=== PATIENT | female | born 1940 | race Caucasian/White ===

== ENCOUNTER 2018-11-05 14:07 | Inpatient (IN) ==
[2018-11-05 15:29] LABS: Hematocrit (blood only) 40.8 % (37-47); Hemoglobin 14.2 g/dL (12.0-16.0); Immature Granulocytes # (auto) 0.02 K/uL (0.00-0.02); Immature Granulocytes % (auto) 0.3 %; Lymphocytes # (auto) 0.71 K/uL (1.2-3.4); Lymphocytes % (auto) 11.5 %; Mean Corpuscular Hgb Conc 34.8 g/dL (32-36); Mean Corpuscular Volume 89.3 fL (80-100); Mean Platelet Volume 9.2 fL (7.4-10.4); Monocytes # (auto) 0.59 K/uL (0.11-0.59); Monocytes % (auto) 9.6 %; Neutrophils # (auto) 4.84 K/uL (1.4-6.5); Neutrophils % (auto) 78.6 %; Platelet Count 190 K/uL (130-400); RDW Coefficient of Variation 12.5 % (11.5-14.5); RDW Standard Deviation 40.6 fL (36.4-46.3); Red Blood Count 4.57 M/uL (4.2-5.4); White Blood Count 6.16 K/uL (4.8-10.8)
[2018-11-05 15:43] LABS: INR 1.1 (0.9-1.1); Prothrombin Time 11.4 Seconds (9.0-12.0)
[2018-11-05 15:49] LABS: Calcium 8.6 mg/dl (8.5-10.1); Creatinine Clr Calc Pharmacy 64.5 ml/min; Est GFR (African American) 80.6; Est GFR (Non-African American) 69.5; Magnesium 1.4 mg/dl (1.8-2.4); Potassium 2.6 mmol/L (3.5-5.1)
--- NOTE | 2018-11-05 15:49 | CT Scan Report ---
CT head/brain wo con CLINICAL HISTORY: 78 years-old Female with diplopia/frontal CAMACHO eval for cva/mass. Acute headache TECHNIQUE: Multiple axial CT images of the head were obtained without contrast. A dose lowering tech nique was utilized adhering to the principles of ALARA. CT DOSE: 614.27 mGy.cm COMPARISON: None. FINDINGS: No acute intracranial hemorrhage, midline shift, intracranial mass, hydrocephalus, territorial ischem ia or abnormal extra-axial collection. Mild age-related involutional changes. Minimal low-attenuation about the periventricular white matter suggestive of chronic microvascular ischemic changes. The calvarium is intact. The paranasal sinuses, mastoid air cells, and middle ear cavities are clear . IMPRESSION: No acute intracranial abnormality. The above report was generated using voice recognition software. It may contain grammatical, syntax o r spelling errors. Electronically signed by: Ck Kirkpatrick M.D. 11/05/2018 3:48 PM
[2018-11-05] MEDS ORDERED: POTASSIUM CHLORIDE 10 MEQ TABCR PO STA (15:55)
[2018-11-05] MEDS ORDERED: POTASSIUM CHLORIDE / WTR 10 MEQ/100 ML PLCT IV ONE ×2 (15:55→20:00)
[2018-11-05] MEDS ORDERED: MAGNESIUM SULFATE / D5W 1 GM/100 ML BAG IV STA (15:55)
[2018-11-05 16:03] LABS: Albumin Globulin Ratio 0.8 (0.9-2); Bilirubin,Total 0.5 mg/dl (0.2-1); Globulin 3.9 gm/dl (2.5-4.0); Total Protein 6.9 gm/dl (6.4-8.2); Troponin I 0.158 ng/ml (0-0.045)
[2018-11-05] MEDS ORDERED: ASPIRIN 81 MG CHEW PO STA (16:52)
[2018-11-05] MEDS ORDERED: ASPIRIN 81 MG CHEW ONE (17:02)
--- NOTE | 2018-11-05 17:29 | History & Physical Report ---
Date of Service November 05, 2018 Assessment & Plan (1) Monocular diplopia, left eye: Patient presented with left eye diplopia and intermittent frontal headache x 4 days. In ER afebrile, P: 101 to 90's, R: 18, BP: 159/79, 95% on RA. No leukocytosis. CT head: no acute findings DDX: stroke, giant cell arteritis -Tele to monitor for arrhythmias -EKG in am -lipids and A1C in am -TSH pending -ESR pending -MRI without contrast -U/S carotids -echo -aspiration precautions -PT/OT consult -Aspirin -neurology consult - educational resource coordinator aware and recommends MRI brain with and without contrast and MRA brain (2) Elevated troponin: Troponin: 0.15. EKG with diffuse ST depression Pt without CP or SOB R/O ACS. Risk factors: HTN, obesity -trend troponin -CPK pending -echo -lipid panel in am -EKG in am -nitro prn CP and repeat EKG -cardiology consult - educational resource coordinator aware, recommends monitoring troponin for now as pt asymptomatic (3) Hypokalemia: K: 2.6 Pt reports decreased oral intake over past several weeks - was on adipex for one month which was discontinued last week In ER given 10meq K IV, 20meq K po -replace and monitor -repeat bmp this evening (4) Hypomagnesemia: magnesium: 1.4 In ER given 1gm magnesium IV -replace and monitor (5) HTN (hypertension): Patient was recently started on Adipex 09/2018 and was discontinued sec ondary to elevated BP. In ER BP 159/79 -Monitor BP, may need to add BP agents (6) Alcohol use: 3 drinks per day. Last drink last night. Denies hx alcohol withdrawal -ativan prn -monitor for alcohol withdrawal DVT Prophylaxis -Heparin SQ DNR/DNI as per discussion with pt Follows with Dr Lau for routine care Pt was seen with Dr Ramos. See addendum History of Present Illness Chief Complaint: Diplopia Primary Care Provider: Ming Lau Pt is 78 y/o F without significant known PMH presented to ER with c/o diplopia x 4 days. Patient states onset of frontal headache 4 days ago. Headache is intermittent and lasts approximately 15-30 minutes, relieved by taking 325 mg aspirin. Patient also reports constant left eye diplopia for the past 4 days. Past 2 days with right neck aching with range of motion and stiffness. Tried massager and muscle rub cream on area with some relief. Patient states thinks right neck stiffness secondary to car ride back from [place]. Denies any head injury or any other recent injuries or falls. Denies vision loss, eye pain. Reports that he has noticed that she has had some hesitation before speaking and sometimes stops mid sentence before finishing a sentence for several weeks. Denies any noted facial drooping. Patient denies any chest pain or shortness of breath. States is able to clean the house without any exertional shortness of breath or chest pain, reports just works at her own pace. Patient was started on Adipex 10/04/18 at PCPs office. At that visit BP was noted to be 142/70. Repeat BP at PCP last week was 162/90 and she was taken off Adipex. Patient states did lose a couple pounds. She complains of dry mouth, loss of appetite, food not tasting well for the last several weeks. Patient states past several weeks has been feeling hot and then cold, did not take her temperature. Thinks has been feeling hot and cold while she was taking Adipex. Patient denies any other medications. Reports drinks 3 mixed drinks a night and last drink was last evening. Denies hx alcohol withdrawal. Denies N/V/D/C, CAMACHO, dizziness, syncope, CP, SOB, orthopnea, palpitations, cough, sore throat, choking, otalgia, rhinorrhea, abdominal pain, paresthesias, weakness, extremity weakness, extremity edema, rashes, urinary symptoms. Patient denies any history of known CAD, TIA or stroke. Allergies Allergy/AdvReac Type Severity Reaction Status Date / Time No Known Allergies Allergy Unverified 11/05/18 15:34 Past Med/Surg History Medical History Alcohol use (Chronic) History of hysterectomy (Chronic) No chronic problems Surgical History History of appendectomy (Chronic) History of cholecystectomy (Chronic) Social History Preferred Language: Arabic Feels Safe at Home: Yes Smoking Status: Former smoker Hx Alcohol Use: Yes Hx Substance Use: No Review of Systems All systems reviewed & are unremarkable except as noted in HPI & below Physical Exam Vital Signs (Past 24 Hours): Last Vital Signs Temp 37.0 C 11/05/18 14:17 Pulse 95 H 11/05/18 17:00 Resp 27 H 11/05/18 17:00 BP 159/79 H 11/05/18 14:17 Pulse Ox 95 11/05/18 17:00 Physical Exam: General: no distress, overweight Head: normocephalic, atraumatic Eyes: PERRL, EOM's intact, conjunctiva non-injected, anicteric ENT: normal inspection external ears, nose, mucous membranes moist Neck: supple, trachea midline, mild tenderness to palpation right lateral paraspinous muscles, left and right rotation with tenderness produced to right lateral/posterior neck, otherwise neck non-tender Lungs: clear, no respiratory distress, no wheezing/rhonchi/rales CV: RRR, no murmur, no JVD, 1+ pretibial edema Abd: normal BS, soft, non-tender Ext: no cyanosis, no calf tenderness Neuro: A&O x 3, +left lateral eye diplopia with both eyes open, symmetric eyebrow raise, tongue midline, no facial drooping, strength equal bilateral upper and lower extremities, no pronator drift, speech clear, thought process clear at this time, normal affect Skin: warm, dry Results & Data Laboratory Results Short CBC 11/05/18 Range/Units 15:20 WBC 6.16 (4.8-10.8) K/uL Hgb 14.2 (12.0-16.0) g/dL Hct 40.8 (37-47) % Plt Count 190 (130-400) K/uL BMP 11/05/18 15:20 Sodium 139 Potassium 2.6 L Chloride 97 L Carbon Dioxide 34 H BUN 10 Creatinine 0.82 Glucose 116 H Calcium 8.6 Cardiac Enzymes 11/05/18 Range/Units 15:20 Troponin I 0.158 H* (0-0.045) ng/ml Liver Function 11/05/18 Range/Units 15:20 Total Bilirubin 0.5 (0.2-1) mg/dl AST 15 (15-37) U/L ALT 18 (12-78) U/L Alkaline Phosphatase 151 H (45-117) U/L Albumin 3.0 L (3.4-5.0) gm/dl Diagnostic Findings CT HEAD: IMPRESSION: No acute intracranial abnormality. ECG Rate (beats per minute): 95 Rhythm: sinus rhythm Findings: + ST depression Comparison ECG Date: no prior available Supervising Physician Co-Signing Physician Notes Attending addendum The patient was seen in the ER in presence of the She is a 78 y/o F without significant known PMH presented to ER with c/o diplopia x 4 days. Patient states onset of frontal headache 4 days ago. Headache is intermittent and lasts approximately 15-30 minutes The headache did not happened to be very severe or explosive and the diplopia is mostly on looking towards the left side. She denies any other associated neurological symptoms. Except diplopia did not have any other complaints due to examination On examination No apparent distress at rest Hemodynamically stable with blood pressure 1% Chest-clear to auscultate bilaterally Heart-S1-S2 regular Abdomen benign nontender-, CATTLE TRADER-alert awake and oriented x3,. No deviation of the eyeballs. Diplopia noted on left lateral gaze only. No obvious extraocular muscle palsy noted. No focal sensory and motor deficit appreciated Admission labs, EKG and imaging studies noted though MRI of the head has been pending Has diplopia in left lateral gauge with headache Mildly elevated troponin without any significant EKG changes Neurology and cardiology consulted MRI of the head will be done Agree with assessment and plan as outlined above by Irene Ramos
[2018-11-05] MEDS ORDERED: ACETAMINOPHEN 325 MG TAB PO PRN (19:30)
[2018-11-05] MEDS ORDERED: PHARMACIST DISCHARGE MED REC CONSULT PRN (19:30)
[2018-11-05] MEDS ORDERED: LORazepam 1 MG/2 ML VIAL IV PRN (19:30)
[2018-11-05] MEDS ORDERED: NITROGLYCERIN SL 0.4 MG/TAB TAB SL PRN (19:30)
[2018-11-05] MEDS ORDERED: MAGNESIUM SULFATE / D5W 1 GM/100 ML BAG IV ONE (20:00)
--- NOTE | 2018-11-05 20:01 | Emergency Department Note ---
Entered by Dank Priest acting as a scribe for History of Present Illness General Chief complaint: Neuro Symptoms/Deficit Stated complaint: DOUBLE VISION(L)HEADACHES,DIZZY,PAIN IN NECK Source: patient Limitations: no limitations History of Present Illness Provider complaint: Double Vision Onset (ago): day(s) (4) Location: eyes and left Pain Consistency: + intermittent Maximum Pain Intensity: 4 Quality: + other (Double vision) Associated symptoms: + headaches; no chest pain and no shortness of breath The patient is a 78 year old female who presents to the Emergency Room with complaints of intermittent double vision that began on , 4 days ago. The patient states that she started noticing visual irregularities about 4 days ago. She states that she sees double when both of her eyes are open, but then has "blurry vision" when the right eye is closed, and sees normally when the left eye is closed. She originally stated that the diplopia was constant, but then states that the double vision comes and goes. The severity of the double vision is worsened with looking down. The patient also complains of an intermittent headache since that is localized to her forehead. She notes that she takes 2 Aspirin when she feels the headache coming on, which improves the pain. When the headache dissipates she notes that she is "confused" for a few seconds. The at bedside adds that the patient's speech sounds "mumbled" at times, but she has not had any difficulty finding words at any time. She denies any further chest pain, shortness of breath, abdominal pain, numbness or weakness to one side of her body. She does complain of intermittent chills for the past couple days. Allergies Allergy/AdvReac Type Severity Reaction Status Date / Time No Known Allergies Allergy Unverified 11/05/18 15:34 Past Med/Surg History Medical History Alcohol use (Chronic) History of hysterectomy (Chronic) No chronic problems Surgical History History of appendectomy (Chronic) History of cholecystectomy (Chronic) Family History Other Coronary heart disease Diabetes Hypertension Social History Preferred Language: Trinidadian Communication Ability: Effective Tool And Die Technician Required: No Beliefs That Will Affect Care: None Current Living Situation: Other Other Information That Helps Us Care for You: No Feels Safe at Home: Yes Safety Concerns: Feels Safe At This Time Smoking Status: Unknown if ever smoked Hx Alcohol Use: Yes Hx Substance Use: No Review of Systems See HPI for pertinent positives & negatives. and A total of 10 systems reviewed and were otherwise negative Physical Exam Vital Signs Vital Signs - 24 hr 11/05/18 14:17 11/05/18 14:41 11/05/18 16:00 Temperature 37.0 C Temperature Source Oral Sepsis Recent Fever Within 48 Hours No Sepsis New/Unexplained Change in Mental Status No Sepsis Action Taken by Nursing No Action Required Pulse Rate 101 H 95 H Pulse Rate from SpO2 Sensor 95 H Respiratory Rate 18 26 H Respiratory Effort / Characteristics Non-Labored Respiratory Depth Normal Blood Pressure 159/79 H Blood Pressure Mean 105 Blood Pressure Position Sitting Pulse Oximetry 95 93 Oxygen Delivery Method Room Air Room Air 11/05/18 16:30 11/05/18 17:00 11/05/18 17:14 Temperature Temperature Source Sepsis Recent Fever Within 48 Hours Sepsis New/Unexplained Change in Mental Status Sepsis Action Taken by Nursing Pulse Rate 96 H 95 H 98 H Pulse Rate from SpO2 Sensor 96 H 97 H 99 H Respiratory Rate 23 27 H 16 Respiratory Effort / Characteristics Respiratory Depth Blood Pressure 173/80 H Blood Pressure Mean 111 Blood Pressure Position Pulse Oximetry 94 95 100 Oxygen Delivery Method Room Air Constitutional: Vital signs reviewed. Eyes: Pupils are equal round reactive to light. Conjunctiva are noninjected. ENT: Pharynx is clear without erythema or exudate. Mucous membranes are moist. Neck supple without meningeal signs. Respiratory: Clear to auscultation bilaterally. Breath sounds are equal bilaterally. Cardiovascular: Regular rate and rhythm. No rubs or gallops. GI: Soft, nondistended and nontender. Bowel sounds are present. Musculoskeletal: No peripheral edema. No lower extremity tenderness. Integumentary: No cyanosis. Neurological: The patient is awake and alert. Cranial nerves II-XII are intact. Motor is 5 out of 5 all extremities. Sensation is intact to light touch all extremities. Normal speech. No pronator drift. No limb ataxia. Binocular diplopia present with downward gaze, no obvious palsy noted. Psychiatric: Normal affect. Course 1435: Past medical records reviewed. The patient was evaluated in room A12B, and a complete history and physical examination were performed. 1601: I checked on the patient. There is no change in her status. I discussed test results. She is agreeable to hospital admission. 1604: I reviewed the patient's case with Anusha Mccarthy [facility] Hospitalist . She will evaluate the patient for further management. 1607: I updated Anusha on the patient's bumped troponin. Administered Medications Discontinued Medications Aspirin (Aspirin Chew) 324 mg PO NOW STA Stop: 11/05/18 16:53 Last Admin: 11/05/18 17:10 Dose: 324 mg Documented by: [id number] Aspirin (Aspirin Chew) Confirm Administered Dose 324 mg .ROUTE .STK-MED ONE Stop: 11/05/18 17:03 Last Admin: 11/05/18 17:11 Dose: Not Given Documented by: [id number] Magnesium Sulfate/Dextrose (Magnesium Sulfate / D5w) 1 gm in 100 mls @ 100 mls/hr IV Q1H STA Stop: 11/05/18 16:54 Last Infusion: 11/05/18 19:14 Dose: 0 mls/hr Documented by: [id number] Admin: 11/05/18 17:29 Dose: 100 mls/hr Documented by: [id number] Potassium Chloride (K Zeb / Wtr) 10 meq in 100 mls @ 100 mls/hr IV ONE ONE Stop: 11/05/18 16:54 Last Infusion: 11/05/18 17:15 Dose: 0 mls/hr Documented by: [id number] Admin: 11/05/18 16:15 Dose: 100 mls/hr Documented by: [id number] Potassium Chloride (Klor-Con M10) 20 meq PO NOW STA Stop: 11/05/18 15:56 Last Admin: 11/05/18 16:20 Dose: 20 meq Documented by: [id number] Medical Decision Making Differential Diagnosis Differential Diagnosis includes: EOM Palsy, intracranial mass, intracranial hemorrhage, CVA, TIA. Medical Records Attestation: I reviewed the patient's medical records. Home Medications Current Medication List: was personally reviewed by mo Laboratory Data Attestation: I reviewed the patient's lab results. Result diagrams: 11/05/18 15:20 11/05/18 15:20 Lab Results 11/05/18 11/05/18 11/05/18 Range/Units 15:20 15:20 15:20 WBC 6.16 (4.8-10.8) K/uL RBC 4.57 (4.2-5.4) M/uL Hgb 14.2 (12.0-16.0) g/dL Hct 40.8 (37-47) % MCV 89.3 (80-100) fL MCH 31.1 (25-34) pg MCHC 34.8 (32-36) g/dL RDW Std Deviation 40.6 (36.4-46.3) fL RDW Coeff of Meche 12.5 (11.5-14.5) % Plt Count 190 (130-400) K/uL MPV 9.2 (7.4-10.4) fL Immature Gran % (Auto) 0.3 % Neut % (Auto) 78.6 % Lymph % (Auto) 11.5 % Rock % (Auto) 9.6 % Eos % (Auto) 0.0 % Baso % (Auto) 0.0 % Immature Gran # (Auto) 0.02 (0.00-0.02) K/uL Neut # (Auto) 4.84 (1.4-6.5) K/uL Lymph # (Auto) 0.71 L (1.2-3.4) K/uL Rock # (Auto) 0.59 (0.11-0.59) K/uL Eos # (Auto) 0.00 (0-0.5) K/uL Baso # (Auto) 0.00 (0-0.2) K/uL PT 11.4 (9.0-12.0) Seconds INR 1.1 (0.9-1.1) APTT 27.0 (21.0-31.0) Seconds PTT Ratio 1.0 Sodium 139 (136-145) mmol/L Potassium 2.6 L (3.5-5.1) mmol/L Chloride 97 L (98-107) mmol/L Carbon Dioxide 34 H (21-32) mmol/L Anion Gap 8.0 (3-11) BUN 10 (7-18) mg/dl Creatinine 0.82 (0.6-1.2) mg/dl Est Cr Clr Drug Dosing 64.5 ml/min Est GFR ( Amer) 80.6 Est GFR (Non-Af Amer) 69.5 BUN/Creatinine Ratio 12.0 (10-20) Glucose 116 H (70-99) mg/dl POC Glucose (70-99) Calcium 8.6 (8.5-10.1) mg/dl Magnesium 1.4 L (1.8-2.4) mg/dl Total Bilirubin 0.5 (0.2-1) mg/dl AST 15 (15-37) U/L ALT 18 (12-78) U/L Alkaline Phosphatase 151 H (45-117) U/L Troponin I 0.158 H* (0-0.045) ng/ml Total Protein 6.9 (6.4-8.2) gm/dl Albumin 3.0 L (3.4-5.0) gm/dl Globulin 3.9 (2.5-4.0) gm/dl Albumin/Globulin Ratio 0.8 L (0.9-2) 03/18/19 Range/Units 15:21 WBC (4.8-10.8) K/uL RBC (4.2-5.4) M/uL Hgb (12.0-16.0) g/dL Hct (37-47) % MCV (80-100) fL MCH (25-34) pg MCHC (32-36) g/dL RDW Std Deviation (36.4-46.3) fL RDW Coeff of Meche (11.5-14.5) % Plt Count (130-400) K/uL MPV (7.4-10.4) fL Immature Gran % (Auto) % Neut % (Auto) % Lymph % (Auto) % Rock % (Auto) % Eos % (Auto) % Baso % (Auto) % Immature Gran # (Auto) (0.00-0.02) K/uL Neut # (Auto) (1.4-6.5) K/uL Lymph # (Auto) (1.2-3.4) K/uL Rock # (Auto) (0.11-0.59) K/uL Eos # (Auto) (0-0.5) K/uL Baso # (Auto) (0-0.2) K/uL PT (9.0-12.0) Seconds INR (0.9-1.1) APTT (21.0-31.0) Seconds PTT Ratio Sodium (136-145) mmol/L Potassium (3.5-5.1) mmol/L Chloride (98-107) mmol/L Carbon Dioxide (21-32) mmol/L Anion Gap (3-11) BUN (7-18) mg/dl Creatinine (0.6-1.2) mg/dl Est Cr Clr Drug Dosing ml/min Est GFR ( Amer) Est GFR (Non-Af Amer) BUN/Creatinine Ratio (10-20) Glucose (70-99) mg/dl POC Glucose 125 H (70-99) Calcium (8.5-10.1) mg/dl Magnesium (1.8-2.4) mg/dl Total Bilirubin (0.2-1) mg/dl AST (15-37) U/L ALT (12-78) U/L Alkaline Phosphatase (45-117) U/L Troponin I (0-0.045) ng/ml Total Protein (6.4-8.2) gm/dl Albumin (3.4-5.0) gm/dl Globulin (2.5-4.0) gm/dl Albumin/Globulin Ratio (0.9-2) Imaging Data Attestation: I personally reviewed and interpreted this imaging study as follows: Radiologist's Impression: CT head/brain wo con CLINICAL HISTORY: 78 years-old Female with diplopia/frontal CAMACHO eval for cva/mass. Acute headache TECHNIQUE: Multiple axial CT images of the head were obtained without contrast. A dose lowering technique was utilized adhering to the principles of ALARA. CT DOSE: 614.27 mGy.cm COMPARISON: None. FINDINGS: No acute intracranial hemorrhage, midline shift, intracranial mass, hydrocephalus, territorial ischemia or abnormal extra-axial collection. Mild age-related involutional changes. Minimal low-attenuation about the p eriventricular white matter suggestive of chronic microvascular ischemic changes. The calvarium is intact. The paranasal sinuses, mastoid air cells, and middle ear cavities are clear. IMPRESSION: No acute intracranial abnormality. The above report was generated using voice recognition software. It may contain grammatical, syntax or spelling errors. Electronically signed by: Ck Kirkpatrick M.D. 11/05/2018 3:48 PM ECG Data Attestation: I personally reviewed and interpreted this ECG as follows: Indication: other (Double vision, headache) Rate (beats per minute): 95 Rhythm: normal sinus Findings: no PVC and no ST elevation Blood Pressure Blood Pressure Findings: Elevated blood pressure Blood Pressure Disposition: elevated BP felt to be situational MDM Narrative I did perform a limited focused review of portions of the patient's old chart on the electronic medical record. The patient has had no prior visits. I did evaluate the patient as noted above. The patient is presenting with binocular diplopia. It seems to be elicited when she looks down. She is other farrell neurologically intact. IV access was established. The patient was placed on a continuous satellite project site monitor. I did order and personally review the patient's 12-lead EKG as described above. Twelve-lead EKG does not show any acute ischemia. I did order and review the patient's blood work as noted in the electronic medical record. She has low potassium as well as low magnesium. She was treated with IV magnesium and KCl. I also gave her oral potassium. Her troponin is slightly elevated as well. She denies having any recent chest discomfort or shortness of breath. Her EKG does not show any acute ischemia. I did order a CT of the head. I did review the images myself as well as the r adiology report as described above. There is no evidence of acute intracranial process. I did discuss the test results with the patient. I did recommend hospitalization for further care and evaluation including MRI of the brain. I did discuss the case with the hospitalist and keycase assembler. Impression & Plan Binocular vision disorder with diplopia, Hypokalemia, Hypomagnesemia, Elevated troponin Discharge Plan Visit Data *Final* Discharge Date/Time: 11/05/18 18:02 Chief Complaint: Neuro Symptoms/Deficit Stated Complaint: DOUBLE VISION(L)HEADACHES,DIZZY,PAIN IN NECK ED Provider: Enrico Esquivel Discharge Problem: Binocular vision disorder with diplopia, Hypokalemia, Hypomagnesemia, Elevated troponin Patient Disposition: Admitted As Inpatient Discharge Instructions Interventions: ED Discharge Assessment Last Done: 11/05/18 18:02 The scribe's documentation has been prepared under my direction and personally reviewed by me in its entirety. I confirm that the note above accurately reflects all work, treatment, procedures, and medical decision making performed by me.
--- NOTE | 2018-11-05 20:13 | XRay Report ---
XR chest 2V routine HISTORY: 78 years-old Female elevated trop acutely elevated troponins COMPARISON: None available TECHNIQUE: PA and lateral views of the chest FINDINGS: Cardiac silhouette is mildly enlarged. Hyperinflated lungs with increased lucency suggestive of emphy sema. Mild diaphragmatic flattening with hyperinflation. Linear subsegmental perihilar, bibasilar and lateral left midlung opacities are suggestive of atelectasis/scarring. There is no pneumothorax, ple ural effusion or overt pulmonary edema. Demineralized appearance the bones with degenerative changes of the shoulders and spine. Suture material projects over the anterior upper abdominal wall. IMPRESSION: 1. Cardiomegaly without acute process. 2. Suggested emphysema with bibasilar and lateral left midlung opacities congestive of atelectasis/sc arring. The above report was generated using voice recognition software. It may contain grammatical, syntax o r spelling errors. Electronically signed by: Ck Kirkpatrick M.D. 11/05/2018 8:11 PM
[2018-11-05 21:30] LABS: BUN Creatinine Ratio 12.5 (10-20); Calcium 8.6 mg/dl (8.5-10.1); Creatinine Clr Calc Pharmacy 67.4 ml/min; Est GFR (African American) 85.6; Est GFR (Non-African American) 73.8; Potassium 2.8 mmol/L (3.5-5.1)
[2018-11-05 21:39] LABS: Troponin I 0.158 ng/ml (0-0.045)
[2018-11-05] MEDS ORDERED: ZOLPIDEM TARTRATE 5 MG TAB PO STA (21:54)
--- NOTE | 2018-11-05 22:14 | Magnetic Resonance Report ---
MR angio head wo con HISTORY: 78 years-old Female diplopia acute diplopia COMPARISON: CT of the head of same day TECHNIQUE: MRA of the head was obtained without the use of IV contrast. All measurements were obtaine d according to NASCET criteria. FINDINGS: Quality Intern localizer images demonstrate no gross abnormality. The bilateral internal carotid arteries are widely patent and within normal limits. The middle and anterior cerebral arteries also appear normal. The vertebral, basilar and bilateral posterior cerebral arteries are widely patent and within normal limits. There is no aneurysm, dissection, high-grade stenosis or proximal branch occlusion identifie d. IMPRESSION: Unremarkable MRA of the head. The above report was generated using voice recognition software. It may contain grammatical, syntax o r spelling errors. Electronically signed by: Ck Kirkpatrick M.D. 11/05/2018 10:13 PM
[2018-11-05] MEDS ORDERED: GADOBUTROL 65ML VIAL IV PRN (22:15)
--- NOTE | 2018-11-05 22:37 | Magnetic Resonance Report ---
MR brain wo/w con HISTORY: 78 years-old Female diplopia acute diplopia COMPARISON: MRA of the head and CT head of same day TECHNIQUE: Multiplanar multisequence MRI of the brain was obtained both with and without the use of 8 .0 mL Gadavist FINDINGS: Enrober localizer images demonstrate no gross extracranial abnormality. There is no restricted diffusio n to suggest acute or subacute infarction. The midline structures including the corpus callosum, brai nstem, optic chiasm, pituitary and pineal glands appear unremarkable on the sagittal T1 series. No ce rebellar tonsillar herniation. Degenerative changes are noted about the imaged cervical spine. Age-related involutional changes. No acute intracranial hemorrhage, midline shift, abnormal extra-axi al collections, hydrocephalus or intracranial mass. Mild to moderate T2/FLAIR hyperintensities about the white matter, predominantly within a periventricular distribution suggestive of chronic microvasc ular ischemic changes. There is no abnormal intra-axial or extra-axial enhancement identified. Cerebr al venous sinuses appear patent. Bilateral orbits appear unremarkable. Mastoid air cells are generally clear. There is mild mucosal thickening about the ethmoid, frontal, m axillary and sphenoid sinuses. Skull, soft tissues appear unremarkable. IMPRESSION: 1. No acute intracranial abnormality, specifically no acute or subacute infarction. 2. No abnormal enhancement. 3. Age-related involutional changes with mild to moderate periventricular T2/FLAIR hyperintensities s uggestive of chronic microvascular ischemic changes. 4. Mild paranasal sinus disease. The above report was generated using voice recognition software. It may contain grammatical, syntax o r spelling errors. Electronically signed by: Ck Kirkpatrick M.D. 11/05/2018 10:35 PM
[2018-11-05] MEDS: HEPARIN SOD 5,000 UNIT/0.5 ML VIAL SQ SCH (23:24)
[2018-11-06 03:07] LABS: Hematocrit (blood only) 38.1 % (37-47); Hemoglobin 12.9 g/dL (12.0-16.0); Lymphocytes # (auto) 0.97 K/uL (1.2-3.4); Lymphocytes % (auto) 17.3 %; Mean Corpuscular Hgb Conc 33.9 g/dL (32-36); Mean Corpuscular Volume 89.9 fL (80-100); Mean Platelet Volume 9.3 fL (7.4-10.4); Monocytes # (auto) 0.68 K/uL (0.11-0.59); Monocytes % (auto) 12.1 %; Neutrophils # (auto) 3.96 K/uL (1.4-6.5); Neutrophils % (auto) 70.6 %; Platelet Count 195 K/uL (130-400); RDW Coefficient of Variation 12.6 % (11.5-14.5); RDW Standard Deviation 41.1 fL (36.4-46.3); Red Blood Count 4.24 M/uL (4.2-5.4); White Blood Count 5.61 K/uL (4.8-10.8)
[2018-11-06 03:26] LABS: BUN Creatinine Ratio 13.8 (10-20); Est GFR (African American) 94.3; Est GFR (Non-African American) 81.3; Potassium 2.9 mmol/L (3.5-5.1)
[2018-11-06 03:35] LABS: Troponin I 0.189 ng/ml (0-0.045)
[2018-11-06] MEDS: HEPARIN SOD 5,000 UNIT/0.5 ML VIAL SQ SCH ×3 (05:13→21:21)
[2018-11-06 06:40] LABS: Estimated Average Glucose 117 mg/dl; Hemoglobin A1C 5.7 % (4.5-5.6)
--- NOTE | 2018-11-06 06:51 | Ultrasound Report ---
US carotid doppler BI CLINICAL HISTORY: 78 years-old Female with diplopia. COMPARISON: MRA of the head of same day TECHNIQUE: Multiple real time sonographic images of the carotid bifurcations were obtained assessing burton scale, color Doppler and spectral wave form appearance FINDINGS: RIGHT CAROTID: The peak systolic velocity within the right ICA measures 80.9 cm/sec. The end diasto lic velocity measured 17.1 cm/sec. The ICA to CCA ratio measured 1.5 which correlates with a stenosi s of 0-50%. Mild to moderate degree of mostly calcified plaque about the right carotid bulb and proxi mal right ICA. LEFT CAROTID: The peak systolic velocity within the left ICA measures 105.6 cm/sec. The end diastol ic velocity measured 24.1 cm/sec. The ICA to CCA ratio measured 0.7 which correlates with a stenosis of 0-50%. Mild to moderate calcified plaque about the left ICA and left carotid bulb. There is normal antegrade vertebral flow bilaterally. Incidental note is made of a heterogeneous nod ule about the right thyroid lobe measuring 2.1 x 2.7 x 1.6 cm which is circumscribed and ovoid with a reas of internal flow. IMPRESSION: 1. Calcified atherosclerotic plaque about the bilateral carotid bulbs without hemodynamically signif icant stenosis. 2. Normal antegrade vertebral flow bilaterally. The above report was generated using voice recognition software. It may contain grammatical, syntax o r spelling errors. Electronically signed by: Ck Kirkpatrick M.D. 11/06/2018 6:50 AM
[2018-11-06] MEDS: POTASSIUM CHLORIDE / WTR 10 MEQ/100 ML PLCT IV SCH ×4 (08:54→12:14)
[2018-11-06] MEDS: ASPIRIN 81 MG ECTAB PO SCH (08:54)
--- NOTE | 2018-11-06 10:06 | Cardiology Consultation ---
Date of Consultation November 06, 2018 Assessment & Plan (1) Binocular vision disorder with diplopia: MR I/MRA of the brain are negative (2) Hypokalemia: Being supplemented (3) Hypomagnesemia: Being supplemented (4) Elevated troponin: I believe the troponin elevations are noncardiac in origin. The nonspecific findings on the EKG of the ST segments are most likely due to the electrolyte abnormalities. I will review the patient's echocardiogram and have more recommendations after that review. (5) Malnutrition compromising bodily function: History of Present Illness Attending Physician: Fuad Jones MD History of Present Illness This is a 78-year-old female with no prior history of heart disease. She presented with a history of not feeling well and having diplopia for 4 days. Thus far neurologic workup has been negative including MRI and MRA of the brain. The patient had been started on Adipex several weeks ago, but states that she has not taken this medication for about a week before developing her diplopia. On admission she had multiple electrolyte abnormalities including hypokalemia and hypomagnesemia. Low albumin and BUN which suggest malnourishment. She also had slightly elevated cardiac troponins which have not significantly increased or decreased since admission. Her EKG showed nonspecific ST and T wave changes which could be due to the electrolyte abnormalities. She denies bulimia. She has had no nausea, vomiting or diarrhea. She has had no chest pain with activity and no unusual shortness of breath. Echocardiogram is pending. Allergies Allergy/AdvReac Type Severity Reaction Status Date / Time No Known Allergies Allergy Unverified 11/05/18 15:34 Patient History Medical History Alcohol use (Chronic) History of hysterectomy (Chronic) No chronic problems Surgical History History of appendectomy (Chronic) History of cholecystectomy (Chronic) Family History Other Coronary heart disease Diabetes Hypertension Social History Communication Ability: Effective Beliefs That Will Affect Care: None Current Living Situation: Other Other Information That Helps Us Care for You: No Feels Safe at Home: Yes Safety Concerns: Feels Safe At This Time Smoking Status: Unknown if ever smoked Hx Alcohol Use: Yes Hx Substance Use: No Review of Systems Review of Systems: See HPI for pertinent positives. All other 10 point review of systems are negative. Physical Exam Vital Signs (Past 24 Hours): Last Vital Signs Temp 37.2 C 11/06/18 07:40 Pulse 89 11/06/18 07:40 Resp 18 11/06/18 07:40 BP 148/78 H 11/06/18 07:40 Pulse Ox 93 11/06/18 07:40 Physical Exam: General: no acute distress and stated age Head: normocephalic, no masses, lesions, tenderness or abnormalities Eyes: conjunctiva are pink and non-injected, sclera clear Neck: supple, no adenopathy, no bruits, normal jugular venous pulse, no hepatojugular reflux Chest: normal shape and normal respiratory effort Lungs: clear to auscultation and percussion Cardiac Exam: - regular rate & rhythm, no murmurs gallops or rubs - normal S1, normal S2 Pulses: 2(+) throughout Abdomen: abdomen soft, non-tender, no abnormal masses and no hepatosplenomegaly Musculoskeletal: no gait disturbance, no joint inflammation, no deforming arthritis Extremities: no edema and no cyanosis Neuro: grossly normal exam Results & Data Laboratory Results Laboratory Results - last 24 hr 11/05/18 11/05/18 11/05/18 15:20 15:20 15:20 WBC 6.16 RBC 4.57 Hgb 14.2 Hct 40.8 MCV 89.3 MCH 31.1 MCHC 34.8 RDW Std Deviation 40.6 RDW Coeff of [place] 12.5 Plt Count 190 MPV 9.2 Immature Gran % (Auto) 0.3 Neut % (Auto) 78.6 Lymph % (Auto) 11.5 [place] % (Auto) 9.6 Eos % (Auto) 0.0 Baso % (Auto) 0.0 Immature Gran # (Auto) 0.02 Neut # (Auto) 4.84 Lymph # (Auto) 0.71 L [place] # (Auto) 0.59 Eos # (Auto) 0.00 Baso # (Auto) 0.00 ESR PT 11.4 INR 1.1 APTT 27.0 PTT Ratio 1.0 Sodium 139 Potassium 2.6 L Chloride 97 L Carbon Dioxide 34 H Anion Gap 8.0 BUN 10 Creatinine 0.82 Est Cr Clr Drug Dosing 64.5 Est GFR ( Amer) 80.6 Est GFR (Non-Af Amer) 69.5 BUN/Creatinine Ratio 12.0 Glucose 116 H POC Glucose Estimat Average Glucose Hemoglobin A1c Calcium 8.6 Magnesium 1.4 L Total Bilirubin 0.5 AST 15 ALT 18 Alkaline Phosphatase 151 H Total Creatine Kinase Troponin I 0.158 H* Total Protein 6.9 Albumin 3.0 L Globulin 3.9 Albumin/Globulin Ratio 0.8 L Triglycerides Cholesterol LDL Cholesterol, Calc VLDL Cholesterol, Calc HDL Cholesterol Cholesterol/HDL Ratio 11/05/18 11/05/18 11/05/18 15:20 15:20 15:21 WBC RBC Hgb Hct MCV MCH MCHC RDW Std Deviation RDW Coeff of [place] Plt Count MPV Immature Gran % (Auto) Neut % (Auto) Lymph % (Auto) [place] % (Auto) Eos % (Auto) Baso % (Auto) Immature Gran # (Auto) Neut # (Auto) Lymph # (Auto) [place] # (Auto) Eos # (Auto) Baso # (Auto) ESR 42 H PT INR APTT PTT Ratio Sodium Potassium Chloride Carbon Dioxide Anion Gap BUN Creatinine Est Cr Clr Drug Dosing Est GFR ( Amer) Est GFR (Non-Af Amer) BUN/Creatinine Ratio Glucose POC Glucose 125 H Estimat Average Glucose Hemoglobin A1c Calcium Magnesium Total Bilirubin AST ALT Alkaline Phosphatase Total Creatine Kinase 26 Troponin I Total Protein Albumin Globulin Albumin/Globulin Ratio Triglycerides Cholesterol LDL Cholesterol, Calc VLDL Cholesterol, Calc HDL Cholesterol Cholesterol/HDL Ratio 11/05/18 11/06/18 11/06/18 20:53 02:46 02:46 WBC 5.61 RBC 4.24 Hgb 12.9 Hct 38.1 MCV 89.9 MCH 30.4 MCHC 33.9 RDW Std Deviation 41.1 RDW Coeff of [place] 12.6 Plt Count 195 MPV 9.3 Immature Gran % (Auto) 0.0 Neut % (Auto) 70.6 Lymph % (Auto) 17.3 [place] % (Auto) 12.1 Eos % (Auto) 0.0 Baso % (Auto) 0.0 Immature Gran # (Auto) 0.00 Neut # (Auto) 3.96 Lymph # (Auto) 0.97 L [place] # (Auto) 0.68 H Eos # (Auto) 0.00 Baso # (Auto) 0.00 ESR PT INR APTT PTT Ratio Sodium 141 140 Potassium 2.8 L 2.9 L Chloride 100 100 Carbon Dioxide 36 H 36 H Anion Gap 5.0 4.0 BUN 10 10 Creatinine 0.78 0.72 Est Cr Clr Drug Dosing 67.4 73.0 Est GFR ( Amer) 85.6 94.3 Est GFR (Non-Af Amer) 73.8 81.3 BUN/Creatinine Ratio 12.5 13.8 Glucose 140 H 125 H POC Glucose Estimat Average Glucose Hemoglobin A1c Calcium 8.6 8.0 L Magnesium 2.0 2.0 Total Bilirubin AST ALT Alkaline Phosphatase Total Creatine Kinase Troponin I 0.158 H* 0.189 H* Total Protein Albumin Globulin Albumin/Globulin Ratio Triglycerides 164 H Cholesterol 168 LDL Cholesterol, Calc 97 VLDL Cholesterol, Calc 33 HDL Cholesterol 38 Cholesterol/HDL Ratio 4 11/06/18 02:46 WBC RBC Hgb Hct MCV MCH MCHC RDW Std Deviation RDW Coeff of Meche Plt Count MPV Immature Gran % (Auto) Neut % (Auto) Lymph % (Auto) [place] % (Auto) Eos % (Auto) Baso % (Auto) Immature Gran # (Auto) Neut # (Auto) Lymph # (Auto) [place] # (Auto) Eos # (Auto) Baso # (Auto) ESR PT INR APTT PTT Ratio Sodium Potassium Chloride Carbon Dioxide Anion Gap BUN Creatinine Est Cr Clr Drug Dosing Est GFR ( Amer) Est GFR (Non-Af Amer) BUN/Creatinine Ratio Glucose POC Glucose Estimat Average Glucose 117 Hemoglobin A1c 5.7 H Calcium Magnesium Total Bilirubin AST ALT Alkaline Phosphatase Total Creatine Kinase Troponin I Total Protein Albumin Globulin Albumin/Globulin Ratio Triglycerides Cholesterol LDL Cholesterol, Calc VLDL Cholesterol, Calc HDL Cholesterol Cholesterol/HDL Ratio Medications Administered Home Medications Acetaminophen (Tylenol) 650 mg PO Q4H PRN PRN Reason: Pain or Fever Stop: 12/05/18 19:29 Aspirin (Ecotrin Ectab) 81 mg PO QAM [facility] Stop: 12/06/18 08:59 Last Admin: 11/06/18 08:54 Dose: 81 mg Documented by: Gadobutrol (Gadavist 65ml) 8 ml IV ONCE PRN PRN Reason: Interaction Checking Stop: 11/09/18 22:14 Last Admin: 11/05/18 22:16 Dose: 8 ml Documented by: Heparin Sodium (Porcine) (Heparin Sodium (Porcine)) 5,000 units SQ Q8 SARA Stop: 12/05/18 21:59 Last Admin: 11/06/18 05:13 Dose: Not Given Documented by: Lorazepam (Ativan) 1 mg in 2 mls @ 2 mls/min IV ONE PRN; Protocol PRN Reason: EtoH Withdrawal AWSS 6-10 Stop: 12/05/18 19:29 Potassium Chloride (K Zeb / Wtr) 10 meq in 100 mls @ 100 mls/hr IV Q1H SARA Stop: 11/06/18 11:33 Last Admin: 11/06/18 09:55 Dose: 100 mls/hr Documented by: Miscellaneous Information (Pharmacist Discharge Med Rec Consult) 1 ea N/A UD PRN PRN Reason: Consult Stop: 12/05/18 19:29 Nitroglycerin (Nitrostat) 0.4 mg SL UD PRN PRN Reason: Chest Pain Stop: 12/05/18 19:29
--- NOTE | 2018-11-06 14:58 | Neurology Consultation ---
Date of Consultation November 06, 2018 Assessment & Plan (1) Monocular diplopia, left eye: 1. MRI with no acute finding of stroke or lesion 2. MRA, carotid - no vascular occlusion 3. cardiology - due to elevation in troponin but likely no cardiac related 4. electrolyte- correct 5. will need ophthalmology exam urgently at discharge 6. history of Adipex (phentermine) with elevation in blood pressure 7. thiamine added with evidence of malnutrition and EtOH abuse 8. thiamine level and sed rate ordered 9. TTE pending 10. patch eye as needed Supervising Physician Co-Signing Physician Notes I have seen and discussed above patient with Dr Shalom Swanson. Patient was seen and examined. i agree with Kiersten Garcia PA-C as noted below. Admitted with binoccular diplopia. MRI brain and MRA reviewed. No evidence of aneurysm. No evidence of acute stroke. T2 flair coronal shows mild microvascluar ischemic changes. 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 EOMI appear full. Pupils are equal and reactive. Orbicularis oculi muscles are strong. She has a history of chronic alcohol use. Recommend starting daily thiamine. Will check ESR and thiamine level. I suspect symptoms will improve with time. I discussed using an eye patch in the interim to help with symptoms. Discussed chronic alcohol use and risk of neuropathy. Recommend outpatient follow up with Ophthalmology. History of Present Illness Reason for Consultation: diplopia Requesting Physician: Fuad Jones MD Attending Physician: Fuad Jones MD History of Present Illness Jeaneth is a 78 year old female with PMH EtOH use, HTN, who presented to ER with c/o diplopia x 4 days. She has a sudden onset of frontal headache and neck pain x 4 days ago. Headache is intermittent and lasts approximately 15-30 minutes, relieved by taking 325 mg aspirin. She then started having constant left eye diplopia for the past 4 days. The neck pain has been persistent and she tried massager and muscle rub cream on area with some relief. She denies any trauma to her neck or chiropractic manipulation. She state she is also having some hesitation before speaking and sometimes stops mid sentence. This has been happening for several weakness. She was started on Adipex 10/04/18 at PCPs office. She was having some elevated blood pressure and she was taken off Adipex. She drinks 3 mixed drinks a night and several beers last drink was Monday night. She has no personal history of stroke but she has a sister that had a stroke. She has not had a ophthalmology exam since this happened. She smo ked for 50 years, no other drugs, drinks caffeine soda and coffee. denies CP, SOB, abdominal pain, one sided weakness, numbness tingling, swallowing issues, N V, +dry mouth, right sided neck pain, left eye diplopia with both eyes open, headache right forehead Allergies Allergy/AdvReac Type Severity Reaction Status Date / Time No Known Allergies Allergy Unverified 11/05/18 15:34 Patient History Medical History Alcohol use (Chronic) History of hysterectomy (Chronic) No chronic problems Surgical History History of appendectomy (Chronic) History of cholecystectomy (Chronic) Family History Other Coronary heart disease Diabetes Hypertension Social History Communication Ability: Effective Beliefs That Will Affect Care: None Current Living Situation: Other Other Information That Helps Us Care for You: No Feels Safe at Home: Yes Safety Concerns: Feels Safe At This Time Smoking Status: Unknown if ever smoked Hx Alcohol Use: Yes Hx Substance Use: No Physical Exam Vital Signs (Past 24 Hours): Last Vital Signs Temp 37.4 C 11/06/18 11:59 Pulse 90 11/06/18 11:59 Resp 18 11/06/18 11:59 BP 155/86 H 11/06/18 11:59 Pulse Ox 94 11/06/18 11:59 Physical Exam: Constitutional: appearance nourished, healthy and normal Ears, Nose, Mouth and Throat: mucous membranes moist, no injection and skin normal, eyes normal Cardiovascular: normal S-1 and S-2 and regular rate and rhythm Respiratory: clear to auscultation (CTA) and no rales, ronchi or wheeze Musculoskeletal: no peripheral edema Skin: no stigmata of neurocutaneous disease noted and normal and intact Eyes: extraocular muscles intact (EOMI) and pupils equal, round and reactive to light (PERRL), gross visual andres intact with covering one eye NEUROLOGIC EXAMINATION: Mental status: Alert and interactive Oriented to full date and location Oriented to person Speech fluent with no evidence of aphasia Cranial Nerves smile eye brow raise symmetric Reflexes: Deep tendon reflexes were symmetrical and graded 2/5. Plantar responses upgoing Sensory: light cool touch Coordination: finger to nose with no bi pass Gait/Stance: Posture sitting up in bed Motor: Negative for pronator drift of out stretched arms with eyes closed. 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, hip flex patellar flex ext plantar flex ext 5/5 Results & Data Laboratory Results Abnormal lab results 11/05/18 11/05/18 11/05/18 Range/Units 15:20 15:20 15:20 Lymph # (Auto) 0.71 L (1.2-3.4) K/uL [place] # (Auto) (0.11-0.59) K/uL ESR 42 H (0-21) mm/hr Potassium 2.6 L (3.5-5.1) mmol/L Chloride 97 L (98-107) mmol/L Carbon Dioxide 34 H (21-32) mmol/L Glucose 116 H (70-99) mg/dl POC Glucose (70-99) Hemoglobin A1c (4.5-5.6) % Calcium (8.5-10.1) mg/dl Magnesium 1.4 L (1.8-2.4) mg/dl Alkaline Phosphatase 151 H (45-117) U/L Troponin I 0.158 H* (0-0.045) ng/ml Albumin 3.0 L (3.4-5.0) gm/dl Albumin/Globulin Ratio 0.8 L (0.9-2) Triglycerides (0-150) mg/dl 11/05/18 11/05/18 11/06/18 Range/Units 15:21 20:53 02:46 Lymph # (Auto) (1.2-3.4) K/uL [place] # (Auto) (0.11-0.59) K/uL ESR (0-21) mm/hr Potassium 2.8 L 2.9 L (3.5-5.1) mmol/L Chloride (98-107) mmol/L Carbon Dioxide 36 H 36 H (21-32) mmol/L Glucose 140 H 125 H (70-99) mg/dl POC Glucose 125 H (70-99) Hemoglobin A1c (4.5-5.6) % Calcium 8.0 L (8.5-10.1) mg/dl Magnesium (1.8-2.4) mg/dl Alkaline Phosphatase (45-117) U/L Troponin I 0.158 H* 0.189 H* (0-0.045) ng/ml Albumin (3.4-5.0) gm/dl Albumin/Globulin Ratio (0.9-2) Triglycerides 164 H (0-150) mg/dl 11/06/18 11/06/18 Range/Units 02:46 02:46 Lymph # (Auto) 0.97 L (1.2-3.4) K/uL [place] # (Auto) 0.68 H (0.11-0.59) K/uL ESR (0-21) mm/hr Potassium (3.5-5.1) mmol/L Chloride (98-107) mmol/L Carbon Dioxide (21-32) mmol/L Glucose (70-99) mg/dl POC Glucose (70-99) Hemoglobin A1c 5.7 H (4.5-5.6) % Calcium (8.5-10.1) mg/dl Magnesium (1.8-2.4) mg/dl Alkaline Phosphatase (45-117) U/L Troponin I (0-0.045) ng/ml Albumin (3.4-5.0) gm/dl Albumin/Globulin Ratio (0.9-2) Triglycerides (0-150) mg/dl Diagnostic Findings CT head-No acute intracranial abnormality. MRI brain -No acute intracranial abnormality, specifically no acute or subacute infarction. No abnormal enhancement. Age-related involutional changes with mild to moderate periventricular T2/FLAIR hyperintensities suggestive of chronic microvascular ischemic changes. Mild paranasal sinus disease. carotid doppler- Cardiomegaly without acute process. Suggested emphysema with bibasilar and lateral left mid lung opacities congestive of atelectasis/scarring. MRA head-Unremarkable MRA of the head.
[2018-11-06 16:12] LABS: Potassium 3.3 mmol/L (3.5-5.1)
[2018-11-06 16:32] LABS: Troponin I 0.167 ng/ml (0-0.045)
[2018-11-06] MEDS: THIAMINE HCL 100 MG TAB PO SCH (16:38)
--- NOTE | 2018-11-06 17:19 | Hospitalist Progress Note ---
Date of Service November 06, 2018 Assessment & Plan (1) Monocular diplopia, left eye: Presented with left eye diplopia and intermittent frontal headache x [address] head showed no acute intracranial abnormality MRI head showed no acute intracranial abnormality, specifically no acute or subacute infarction. Carotid doppler showed Calcified atherosclerotic plaque about the bilateral carotid bulbs without hemodynamically significant stenosis. MRA head showed unremarkable MRA of the head. ESR midly elevated Case discussed with neurorecommended eye patch in the interim to help with symptoms Thiamine supplement Continue Physical therapy Outpatient ophthalmology eval (2) Elevated troponin: Troponin trending down Denies any chest pain Echo pending Cardiology on board Nonspecific findings on the EKG of the ST segments are most likely due to the electrolyte abnormalities as per cardio Continue tele monitor (3) HTN (hypertension): BP elevated Recently started on Adipex 09/2018 and was discontinued secondary to elevated BP. Will start on amlodipine 5 mg Monitor BP (4) Electrolyte imbalance: Low magnesium and potassium on admission Mag 2 and repeat K 3.2 Will replace K Monitor BMP (5) Alcohol use: Counseling on alcohol cessation Denies hx alcohol withdrawal Monitor for alcohol withdrawal Continue thiamine and folic acid Ativan PRN DVT Prophylaxis Heparin SQ COde status DNR Disposition Possible discharge tomorrow Subjective Pt was seen and examined Lying in bed with no distress Pt said that she continues to have double vision but seems to improve She denies any neuro focal deficit Denies any chest pain, palpitation, dizziness and SOB Physical Exam Vital Signs (Past 24 Hours): Last Vital Signs Temp 37.4 C 11/06/18 11:59 Pulse 90 11/06/18 11:59 Resp 18 11/06/18 11:59 BP 155/86 H 11/06/18 11:59 Pulse Ox 94 11/06/18 11:59 Physical Exam: General- No acute distress Head- atraumatic Eyes- PERRL, EOMI, ENT- oropharynx clear Neck- supple, no JVD Lungs- clear to auscultation Heart- regular rhythm; no murmur Abdomen- normal bowel sounds, soft, nontender Extremities- no calf tenderness Neuro- alert, oriented x 3; PERRL, EOMI; no facial palsy; no dysarthria Skin- warm & dry
[2018-11-06] MEDS ORDERED: POTASSIUM CHLORIDE 10 MEQ TABCR PO STA (18:03)
[2018-11-06] MEDS ORDERED: ZOLPIDEM TARTRATE 5 MG TAB PO STA (21:56)
[2018-11-06] MEDS ORDERED: LABETALOL HCL IV 5 MG/ML 20ML IV PRN (22:26)
[2018-11-07 04:06] VITALS: TEMP 97.7; O2SAT 94
[2018-11-07] MEDS: HEPARIN SOD 5,000 UNIT/0.5 ML VIAL SQ SCH ×3 (05:51→13:12)
[2018-11-07 06:29] LABS: Hemoglobin 12.4 g/dL (12.0-16.0); Lymphocytes # (auto) 0.99 K/uL (1.2-3.4); Lymphocytes % (auto) 20.1 %; Mean Corpuscular Hgb Conc 33.5 g/dL (32-36); Mean Corpuscular Volume 89.2 fL (80-100); Mean Platelet Volume 9.3 fL (7.4-10.4); Monocytes # (auto) 0.51 K/uL (0.11-0.59); Monocytes % (auto) 10.4 %; Neutrophils # (auto) 3.42 K/uL (1.4-6.5); Neutrophils % (auto) 69.5 %; Platelet Count 192 K/uL (130-400); RDW Coefficient of Variation 12.3 % (11.5-14.5); RDW Standard Deviation 39.9 fL (36.4-46.3); Red Blood Count 4.15 M/uL (4.2-5.4); White Blood Count 4.92 K/uL (4.8-10.8)
[2018-11-07 06:57] LABS: BUN Creatinine Ratio 12.1 (10-20); Calcium 7.7 mg/dl (8.5-10.1); Creatinine Clr Calc Pharmacy 86.8 ml/min; Est GFR (African American) 102.1; Est GFR (Non-African American) 88.1; Potassium 3.1 mmol/L (3.5-5.1)
[2018-11-07] MEDS ORDERED: PERFLUTREN LIPID MICROSPHERE (DEFINITY) IV ONE (07:09)
[2018-11-07] MEDS ORDERED: AMLODIPINE BESYLATE 5 MG TAB PO SCH (09:00)
[2018-11-07] MEDS ORDERED: FOLIC ACID 1 MG TAB PO SCH (09:00)
[2018-11-07] MEDS: POTASSIUM CHLORIDE / WTR 10 MEQ/100 ML PLCT IV SCH ×4 (09:30→13:11)
[2018-11-07] MEDS: THIAMINE HCL 100 MG TAB PO SCH (09:31)
[2018-11-07] MEDS: ASPIRIN 81 MG ECTAB PO SCH (09:31)
--- NOTE | 2018-11-07 12:21 | Cardiology Progress Note ---
Date of Service November 07, 2018 Assessment & Plan (1) Binocular vision disorder with diplopia: MRI/MRA of the brain are negative (2) Hypokalemia: Being supplemented (3) Hypomagnesemia: Being supplemented (4) Elevated troponin: I believe the troponin elevations are noncardiac in origin. The nonspecific findings on the EKG of the ST segments are most likely due to the electrolyte abnormalities. The echocardiogram is unremarkable. I do not believe any additional cardiac testing is indicated. Cardiology signed off the case. (5) Malnutrition compromising bodily function: Subjective The patient is having lunch and feeling well. She has no new complaints today. Reviewed the telemetry for the past 24 hours. She had no significant arrhythmias. Her echocardiogram I also reviewed and it was essentially normal. Physical Exam Vital Signs (Past 24 Hours): Last Vital Signs Temp 36.5 C 11/07/18 04:04 Pulse 68 11/07/18 04:04 Resp 16 11/07/18 04:04 BP 149/71 H 11/07/18 04:04 Pulse Ox 94 11/07/18 04:04 Physical Exam: General: no acute distress and stated age Head: normocephalic, no masses, lesions, tenderness or abnormalities Eyes: conjunctiva are pink and non-injected, sclera clear Neck: supple, no adenopathy, no bruits, normal jugular venous pulse, no hepatojugular reflux Chest: normal shape and normal respiratory effort Lungs: clear to auscultation and percussion Cardiac Exam: - regular rate & rhythm, no murmurs gallops or rubs - normal S1, normal S2 Pulses: 2(+) throughout Abdomen: abdomen soft, non-tender, no abnormal masses and no hepatosplenomegaly Musculoskeletal: no gait disturbance, no joint inflammation, no deforming arthritis Extremities: no edema and no cyanosis Neuro: grossly normal exam Results & Data Laboratory Results Laboratory Results - last 24 hr 11/06/18 11/06/18 11/07/18 15:16 16:22 05:46 WBC RBC Hgb Hct MCV MCH MCHC RDW Std Deviation RDW Coeff of Meche Plt Count MPV Immature Gran % (Auto) Neut % (Auto) Lymph % (Auto) Arroyo % (Auto) Eos % (Auto) Baso % (Auto) Immature Gran # (Auto) Neut # (Auto) Lymph # (Auto) Arroyo # (Auto) Eos # (Auto) Baso # (Auto) ESR 33 H Sodium 141 Potassium 3.3 L 3.1 L Chloride 105 Carbon Dioxide 30 Anion Gap 6.0 BUN 7 Creatinine 0.61 Est Cr Clr Drug Dosing 86.8 Est GFR ( Amer) 102.1 Est GFR (Non-Af Amer) 88.1 BUN/Creatinine Ratio 12.1 Glucose 128 H Calcium 7.7 L Troponin I 0.167 H* 11/07/18 05:46 WBC 4.92 RBC 4.15 L Hgb 12.4 Hct 37.0 MCV 89.2 MCH 29.9 MCHC 33.5 RDW Std Deviation 39.9 RDW Coeff of Meche 12.3 Plt Count 192 MPV 9.3 Immature Gran % (Auto) 0.0 Neut % (Auto) 69.5 Lymph % (Auto) 20.1 Arroyo % (Auto) 10.4 Eos % (Auto) 0.0 Baso % (Auto) 0.0 Immature Gran # (Auto) 0.00 Neut # (Auto) 3.42 Lymph # (Auto) 0.99 L Arroyo # (Auto) 0.51 Eos # (Auto) 0.00 Baso # (Auto) 0.00 ESR Sodium Potassium Chloride Carbon Dioxide Anion Gap BUN Creatinine Est Cr Clr Drug Dosing Est GFR ( Amer) Est GFR (Non-Af Amer) BUN/Creatinine Ratio Glucose Calcium Troponin I Medications Administered Current Inpatient Medications Acetaminophen (Tylenol) 650 mg PO Q4H PRN PRN Reason: Pain or Fever Stop: 12/05/18 19:29 Amlodipine Besylate (Norvasc) 5 mg PO [facility] Stop: 12/07/18 08:59 Last Admin: 11/07/18 09:30 Dose: 5 mg Documented by: Aspirin (Ecotrin Ectab) 81 mg PO [facility] Stop: 12/06/18 08:59 Last Admin: 11/07/18 09:31 Dose: 81 mg Documented by: Folic Acid (Folvite) 1 mg PO [facility] Stop: 12/07/18 08:59 Last Admin: 11/07/18 09:31 Dose: 1 mg Documented by: Gadobutrol (Gadavist 65ml) 8 ml IV ONCE PRN PRN Reason: Interaction Checking Stop: 11/09/18 22:14 Last Admin: 11/05/18 22:16 Dose: 8 ml Documented by: Heparin Sodium (Porcine) (Heparin Sodium (Porcine)) 5,000 units SQ Q8 [facility] Stop: 12/05/18 21:59 Last Admin: 11/07/18 05:54 Dose: Not Given Documented by: Lorazepam (Ativan) 1 mg in 2 mls @ 2 mls/min IV ONE PRN; Protocol PRN Reason: EtoH Withdrawal AWSS 6-10 Stop: 12/05/18 19:29 Potassium Chloride (K Zeb / Wtr) 10 meq in 100 mls @ 100 mls/hr IV Q1H [facility] Stop: 11/07/18 13:14 Last Admin: 11/07/18 12:11 Dose: 100 mls/hr Documented by: Labetalol HCl (Normodyne) 5 mg IV Q6H PRN PRN Reason: SBP above 165 Stop: 12/06/18 22:25 Nitroglycerin (Nitrostat) 0.4 mg SL UD PRN PRN Reason: Chest Pain Stop: 12/05/18 19:29 Thiamine HCl (Vitamin B-1) 100 mg PO QAM [facility] Stop: 12/06/18 14:59 Last Admin: 11/07/18 09:31 Dose: 100 mg Documented by:
--- NOTE | 2018-11-07 14:18 | Hospitalist Progress Note ---
Date of Service November 07, 2018 Assessment & Plan (1) Monocular diplopia, left eye: Presented with left eye diplopia and intermittent frontal headache x [address] head showed no acute intracranial abnormality MRI head showed no acute intracranial abnormality, specifically no acute or subacute infarction. Carotid doppler showed Calcified atherosclerotic plaque about the bilateral carotid bulbs without hemodynamically significant stenosis. MRA head showed unremarkable MRA of the head. ESR midly elevated Case discussed with neurology recommended eye patch in the interim to help with symptoms Outpatient appointment with director of grants Dr. Castaneda tomorrow at 10:00 AM Thiamine supplement Stable from PT/OT Advised pt no driving for now until diplopia resolved (2) Elevated troponin: Troponin trending down Denies any chest pain Echo showed no wall motion abnormality with EF 55-60 % Cardiology on board Nonspecific findings on the EKG of the ST segments are most likely due to the electrolyte abnormalities as per cardio As per cardiology no further cardiac testing is indicated. Stable from cardiac standpoint (3) HTN (hypertension): BP elevated Recently started on Adipex 09/2018 and was discontinued secondary to elevated BP. Continue amlodipine 5 mg daily Monitor BP (4) Electrolyte imbalance: Low magnesium and potassium on admission Magnesium stable K 3.1, K replaced Continue K supplement Check BMP within 1 week (5) Alcohol use: Counseling on alcohol cessation Denies hx alcohol withdrawal Monitor for alcohol withdrawal Continue thiamine and folic acid Ativan PRN DVT Prophylaxis Heparin SQ COde status DNR Disposition Discharge home today Follow up with Stage Hand Dr. Castaneda @ 10:00 AM Address: [address] [place] [address] Subjective Pt was seen and examined Lying in bed with no distress Pt said that she feels ok She said that she continues to have double vision She said that when she closes her left eye by placing her her in her left eye, the diplopia improves She denies any any headache, dizziness, numbness and slurred speech Physical Exam Vital Signs (Past 24 Hours): Last Vital Signs Temp 36.5 C 11/07/18 04:04 Pulse 68 11/07/18 04:04 Resp 16 11/07/18 04:04 BP 149/71 H 11/07/18 04:04 Pulse Ox 94 11/07/18 04:04 Physical Exam: General- No acute distress Head- atraumatic Eyes- PERRL, EOMI, ENT- oropharynx clear Neck- supple, no JVD Lungs- clear to auscultation Heart- regular rhythm; no murmur Abdomen- normal bowel sounds, soft, nontender Extremities- no calf tenderness Neuro- alert, oriented x 3; PERRL, EOMI; no facial palsy; no dysarthria Skin- warm & dry
[2018-11-07 15:12] VITALS: BP 158/76; PULSE 89
--- NOTE | 2018-11-07 23:11 | Discharge Summary ---
Date of Service November 07, 2018 Admission HPI Per Admitting Provider Pt is 78 y/o F without significant known PMH presented to ER with c/o diplopia x 4 days. Patient states onset of frontal headache 4 days ago. Headache is intermittent and lasts approximately 15-30 minutes, relieved by taking 325 mg aspirin. Patient also reports constant left eye diplopia for the past 4 days. Past 2 days with right neck aching with range of motion and stiffness. Tried massager and muscle rub cream on area with some relief. Patient states thinks right neck stiffness secondary to car ride back from [place]. Denies any head injury or any other recent injuries or falls. Denies vision loss, eye pain. Reports that he has noticed that she has had some hesitation before speaking and sometimes stops mid sentence before finishing a sentence for several weeks. Denies any noted facial drooping. Patient denies any chest pain or shortness of breath. States is able to clean the house without any exertional shortness of breath or chest pain, reports just works at her own pace. Patient was started on Adipex 10/04/18 at PCPs office. At that visit BP was noted to be 142/70. Repeat BP at PCP last week was 162/90 and she was taken off Adipex. Patient states did lose a couple pounds. She complains of dry mouth, loss of appetite, food not tasting well for the last several weeks. Patient states past several weeks has been feeling hot and then cold, did not take her temperature. Thinks has been feeling hot and cold while she was taking Adipex. Patient denies any other medications. Reports drinks 3 mixed drinks a night and last drink was last evening. Denies hx alcohol withdrawal. Denies N/V/D/C, CAMACHO, dizziness, syncope, CP, SOB, orthopnea, palpitations, cough, sore throat, choking, otalgia, rhinorrhea, abdominal pain, paresthesias, weakness, extremity weakness, extremity edema, rashes, urinary symptoms. Patient denies any history of known CAD, TIA or stroke. Admission Exam Per Admitting Provider General: no distress, overweight Head: normocephalic, atraumatic Eyes: PERRL, EOM's intact, conjunctiva non-injected, anicteric ENT: normal inspection external ears, nose, mucous membranes moist Neck: supple, trachea midline, mild tenderness to palpation right lateral paraspinous muscles, left and right rotation with tenderness produced to right lateral/posterior neck, otherwise neck non-tender Lungs: clear, no respiratory distress, no wheezing/rhonchi/rales CV: RRR, no murmur, no JVD, 1+ pretibial edema Abd: normal BS, soft, non-tender Ext: no cyanosis, no calf tenderness Neuro: A&O x 3, +left lateral eye diplopia with both eyes open, symmetric eyebrow raise, tongue midline, no facial drooping, strength equal bilateral upper and lower extremities, no pronator drift, speech clear, thought process clear at this time, normal affect Skin: warm, dry Principal Diagnosis Monocular diplopia, left eye Hypertension Electrolytes Imbalance Elevate troponin Discharge Exam General- No acute distress Head- atraumatic Eyes- PERRL, EOMI, ENT- oropharynx clear Neck- supple, no JVD Lungs- clear to auscultation Heart- regular rhythm; no murmur Abdomen- normal bowel sounds, soft, nontender Extremities- no calf tenderness Neuro- alert, oriented x 3; PERRL, EOMI; no facial palsy; no dysarthria Skin- warm & dry Discharge Data Allergies Allergy/AdvReac Type Severity Reaction Status Date / Time No Known Allergies Allergy Unverified 11/05/18 15:34 Consultations 11/05/18 16:03 ED Decision to Admit Stat 11/05/18 19:30 Consult Cardiology Routine Consult Case Management - Discharge Planning Routine Consult Neurology Routine Ordered Studies 11/05/18 14:47 CT head/brain wo con Stat 11/05/18 19:30 MR angio head wo con Routine MR brain wo/w con Routine US carotid doppler BI Routine MR angio head wo con HISTORY: 78 years-old Female diplopia acute diplopia COMPARISON: CT of the head of same day TECHNIQUE: MRA of the head was obtained without the use of IV contrast. All measurements were obtained according to NASCET criteria. FINDINGS: Stock Preparation Supervisor localizer images demonstrate no gross abnormality. The bilateral internal carotid arteries are widely patent and within normal limits. The middle and anterior cerebral arteries also appear normal. The vertebral, basilar and bila teral posterior cerebral arteries are widely patent and within normal limits. There is no aneurysm, dissection, high-grade stenosis or proximal branch occlusion identified. IMPRESSION: Unremarkable MRA of the head. The above report was generated using voice recognition software. It may contain grammatical, syntax or spelling errors. Electronically signed by: Ck Kirkpatrick M.D. 11/05/2018 10:13 PM Dictated: 11/05/182208 Transcribed: 11/05/182208 XR chest 2V routine HISTORY: 78 years-old Female elevated trop acutely elevated troponins COMPARISON: None available TECHNIQUE: PA and lateral views of the chest FINDINGS: Cardiac silhouette is mildly enlarged. Hyperinflated lungs with increased lucency suggestive of emphysema. Mild diaphragmatic flattening with hyperinflation. Linear subsegmental perihilar, bibasilar and lateral left midlung opacities are suggestive of atelectasis/scarring. There is no pneumothorax, pleural effusion or overt pulmonary edema. Demineralized appearance the bones with degenerative changes of the shoulders and spine. Suture material projects over the anterior upper abdominal wall. IMPRESSION: 1. Cardiomegaly without acute process. 2. Suggested emphysema with bibasilar and lateral left midlung opacities congestive of atelectasis/scarring. The above report was generated using voice recognition software. It may contain grammatical, syntax or spelling errors. Electronically signed by: Ck Kirkpatrick M.D. 11/05/2018 8:11 PM Dictated: 11/05/182008 Transcribed: 11/05/182008 US carotid doppler BI CLINICAL HISTORY: 78 years-old Female with diplopia. COMPARISON: MRA of the head of same day TECHNIQUE: Multiple real time sonographic images of the carotid bifurcations were obtained assessing burton scale, color Doppler and spectral wave form appearance FINDINGS: RIGHT CAROTID: The peak systolic velocity within the right ICA measures 80.9 cm/sec. The end diastolic velocity measured 17.1 cm/sec. The ICA to CCA ratio measured 1.5 which correlates with a stenosis of 0-50%. Mild to moderate degree of mostly calcified plaque about the right carotid bulb and proximal right ICA. LEFT CAROTID: The peak systolic velocity within the left ICA measures 105.6 cm/sec. The end diastolic velocity measured 24.1 cm/sec. The ICA to CCA ratio measured 0.7 which correlates with a stenosis of 0-50%. Mild to moderate calcified plaque about the left ICA and left carotid bulb. There is normal antegrade vertebral flow bilaterally. Incidental note is made of a heterogeneous nodule about the right thyroid lobe measuring 2.1 x 2.7 x 1.6 cm which is circumscribed and ovoid with areas of internal flow. IMPRESSION: 1. Calcified atherosclerotic plaque about the bilateral carotid bulbs without hemodynamically significant stenosis. 2. Normal antegrade vertebral flow bilaterally. The above report was generated using voice recognition software. It may contain grammatical, syntax or spelling errors. Electronically signed by: Ck Kirkpatrick M.D. 11/06/2018 6:50 AM Dictated: 11/06/18646 Transcribed: 11/06/18646 MR brain wo/w con HISTORY: 78 years-old Female diplopia acute diplopia COMPARISON: MRA of the head and CT head of same day TECHNIQUE: Multiplanar multisequence MRI of the brain was obtained both with and without the use of 8.0 mL Gadavist FINDINGS: Stock Preparation Supervisor localizer images demonstrate no gross extracranial abnormality. There is no restricted diffusion to suggest acute or subacute infarction. The midline structures including the corpus callosum, brainstem, optic chiasm, pituitary and pineal glands appear unremarkable on the sagittal T1 series. No cerebellar tonsillar herniation. Degenerative changes are noted about the imaged cervical spine. Age-related involutional changes. No acute intracranial hemorrhage, midline shift, abnormal extra-axial collections, hydrocephalus or intracranial mass. Mild to moderate T2/FLAIR hyperintensities about the white matter, predominantly within a periventricular distribution suggestive of chronic microvascular ischemic changes. There is no abnormal intra-axial or extra-axial enhancement identified. Cerebral venous sinuses appear patent. Bilateral orbits appear unremarkable. Mastoid air cells are generally clear. There is mild mucosal thickening about the ethmoid, frontal, maxillary and sphenoid sinuses. Skull, soft tissues appear unremarkable. IMPRESSION: 1. No acute intracranial abnormality, specifically no acute or subacute infarction. 2. No abnormal enhancement. 3. Age-related involutional changes with mild to moderate periventricular T2/FLAIR hyperintensities suggestive of chronic microvascular ischemic changes. 4. Mild paranasal sinus disease. The above report was generated using voice recognition software. It may contain grammatical, syntax or spelling errors. Electronically signed by: Ck Kirkpatrick M.D. 11/05/2018 10:35 PM Dictated: 11/05/182224 Transcribed: 11/05/182224 CT head/brain wo con CLINICAL HISTORY: 78 years-old Female with diplopia/frontal CAMACHO eval for cva/mass. Acute headache TECHNIQUE: Multiple axial CT images of the head were obtained without contrast. A dose lowering technique was utilized adhering to the principles of ALARA. CT DOSE: 614.27 mGy.cm COMPARISON: None. FINDINGS: No acute intracranial hemorrhage, midline shift, intracranial mass, hydrocepha gabbi, territorial ischemia or abnormal extra-axial collection. Mild age-related involutional changes. Minimal low-attenuation about the periventricular white matter suggestive of chronic microvascular ischemic changes. The calvarium is intact. The paranasal sinuses, mastoid air cells, and middle ear cavities are clear. IMPRESSION: No acute intracranial abnormality. The above report was generated using voice recognition software. It may contain grammatical, syntax or spelling errors. Electronically signed by: Ck Kirkpatrick M.D. 11/05/2018 3:48 PM Dictated: 11/05/18 1536 Transcribed: 11/05/18 1536 Hospital Course (1) Monocular diplopia, left eye: Presented with left eye diplopia and intermittent frontal headache x [address] head showed no acute intracranial abnormality MRI head showed no acute intracranial abnormality, specifically no acute or subacute infarction. Carotid doppler showed Calcified atherosclerotic plaque about the bilateral carotid bulbs without hemodynamically significant stenosis. MRA head showed unremarkable MRA of the head. ESR midly elevated Case discussed with neurology recommended eye patch in the interim to help with symptoms Outpatient appointment with court bailiff Dr. Castaneda tomorrow at 10:00 AM Thiamine supplement Stable from PT/OT Advised pt no driving for now until diplopia resolved (2) Elevated troponin: Troponin trending down Denies any chest pain Echo showed no wall motion abnormality with EF 55-60 % Cardiology on board Nonspecific findings on the EKG of the ST segments are most likely due to the electrolyte abnormalities as per cardio As per cardiology no further cardiac testing is indicated. Stable from cardiac standpoint (3) HTN (hypertension): BP elevated Recently started on Adipex 09/2018 and was discontinued secondary to elevated BP. Continue amlodipine 5 mg daily Monitor BP (4) Electrolyte imbalance: Low magnesium and potassium on admission Magnesium stable K 3.1, K replaced Continue K supplement Check BMP within 1 week (5) Alcohol use: Counseling on alcohol cessation Denies hx alcohol withdrawal Monitor for alcohol withdrawal Continue thiamine and folic acid Ativan PRN DVT Prophylaxis Heparin SQ COde status DNR Disposition Discharge home today Follow up with License Issuer Dr. Castaneda @ 10:00 AM Address: [address] [place] [address] Total Time Total Time Spent Total Time Spent (In Minutes): 35 minutes Total Time Includes: Examination of the Patient, Discharge Planning, Medication Reconciliation, Communication With Other Providers and Other Discharge Plan Discharge Items Patient Disposition: Home - Self-Care Reason For Visit: DIPLOPIA,ELEVATED TROPONIN Discharge Diagnosis: Monocular diplopia, left eye Hypertension Electrolytes Imbalance Elevate troponin Discharge Goals: Decrease discomfort, Diagnostic testing, Improve disease control, Improve function and Increase independence Activity: Resume your previous activity Activity Comment: As tolerated Non-emergency contact: Primary Care Provider and License Issuer Call non-emergency contact if: you have any medication questions and your symptoms worsen Follow-up/Referrals: Ming Lau [Primary Care Provider] - Diet: Low Sodium (2gm) Addtl Provider Instructions: Follow up with Primary care provider Dr. Corral (Dr. Lau's colleague) on 11/12 @ 11:05 AM Follow up with License Issuer Dr. Castaneda @ 10:00 AM tomorrow (11/08) (Address: [address] [place] [address]. Phone: ) Check BMP within 1 week to monitor your potassium Eye patch in the interim to help with symptoms of diplopia No driving until diplopia resolves Fall precaution Monitor your blood pressure Prescriptions: New thiamine HCl (vitamin B1) [Vitamin B-1] 100 mg Tablet 100 mg PO QAM 30 Days Qty: 30 RF: 0 amlodipine [Norvasc] 5 mg Tablet 5 mg PO QAM 30 Days Qty: 30 RF: 0 aspirin [Ecotrin Low Strength] 81 mg Tablet,Delayed Release (Dr/Ec) 81 mg PO QAM 30 Days Qty: 30 RF: 0 folic acid 1 mg Tablet 1 mg PO QAM 30 Days Qty: 30 RF: 0 potassium chloride 20 mEq tablet extended release 20 meq PO DAILY Qty: 30 RF: 0 Stand-Alone Forms: [employer] [facility] Discharge Orders: Discharge Order (Routine); Ordered 11/07/18 Ordered By: Fuad Jones Admission Data Admit Date/Time: 11/05/18 17:23 Attending Provider: Fuad Jones Admit Provider: Aman Ramos Primary Care Provider: Ming Lau Other Providers: Shalom Swanson ; Aman Ramos ; Ishan Ferreira Service: Telemetry Medical Other Interventions: Discharge Summary Assessment (RN) Last Done: 11/07/18 15:10 DC Date/Time DO NOT enter until pt leaves facility: 11/07/18 16:10
== END 2018-11-07 16:10 | disposition home or self-care (01) | DRG 123 ==
LOC: ED 14:07 → 2N 17:23

== ENCOUNTER 2020-11-02 08:52 | Observation (INO) ==
--- NOTE | 2020-10-30 16:31 | Cardiology Consultation ---
Date of Consultation October 30, 2020 Assessment & Plan (1) Abnormal cardiovascular stress test: Patient is a 80-year-old female with cardiovascular risk factors of hypertension hyperlipidemia prior tobacco use was referred for stress testing with symptoms of intermittent left arm and chest discomfort as well as malaise and exertional fatigue. Stress test was abnormal with poor exercise tolerance with marked dyspnea less than 2 minutes exertion Plan: Patient received 50 mg p.o. metoprolol succinate post stress test will continue at 25 mg p.o. daily, aspirin 81 mg/day. Prescription provided for sublingual nitroglycerin Results of study discussed in detail with the patient scheduled for cardiac catheterization, coronary angiography on 11/02/2020. Procedure and risks discussed in detail. Patient to remain sedentary until procedure performed The patient to seek immediate medical care if any worsening of symptoms in the interim. Lab work and chest x-ray ordered for today (2) HTN (hypertension): (3) Hyperlipidemia: History of Present Illness Reason for Consultation: Abnormal stress test Requesting Physician: Dr. Licona Attending Physician: Jorge Bates MD History of Present Illness Patient is a 80-year-old female referred for stress testing after recent complaints of chest pressure pain, shortness of breath and greater than 1 year history of increasing fatigue and malaise. Her underlying medical issues include borderline hypertension, hyperglycemia and marked hyperlipidemia Patient was referred and underwent stress echocardiography on 10/30/2020. Study was notable for markedly diminished exercise tolerance with marked dyspnea only with 1 minute and 30 seconds on a Jose protocol. EKG response was initially negative but notable for significant ST abnormalities in the recovery phase. Echocardiography was suggestive of possible septal and apical ischemia. Patient referred for further evaluation. Patient denies prior history of myocardial infarction angina or congestive heart failure. She has been experiencing symptoms of shortness of breath and left arm and shoulder discomfort for several months. She is noted some exertional relationship as well as waking from sleep at night on occasion. Notes no fevers chills or unexplained infections. No bleeding difficulties. No melena medication dysuria hematuria. No acute weight loss or gain. 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 She carries a history of significant tobacco use but discontinued in 2014 with greater than 30-[id number] history. Drinks approximately 3 alcoholic beverages per day Allergies Allergy/AdvReac Type Severity Reaction Status Date / Time No Known Allergies Allergy Verified 02/12/19 08:53 Home Medications Medication Instructions Recorded Confirmed Type multivitamin 1 tab PO DAILY 01/10/19 02/12/19 History Patient History Medical History (Updated 10/30/20 @ 16:43 by Jorge Bates MD) Cancer CERVICAL CANCER Chronic obstructive pulmonary disease MILD Surgical History History of appendectomy History of cholecystectomy History of dilatation and curettage History of herniorrhaphy History of hysterectomy History of left cataract surgery History of open reduction and internal fixation (ORIF) procedure LEFT ANKLE History of tooth extraction Family History Mother Diabetes Other Coronary heart disease Hypertension Social History Smoking Status: Former smoker Cigarettes Per Day: smoked 1.5ppd x 50 years. Quit 2014; Second Hand Exposure: No; Hx Alcohol Use: Yes Alcohol type: hard liquor Alcohol Intake Frequency Comment: 3 mixed drinks daily Hx Substance Use: No Preferred Language: Yoruba Communication Ability: Effective Technical Support Technician Required: No Beliefs That Will Affect Care: None Current Living Situation: Significant Other Feels Safe at Home: Yes Assistive Devices: Denture - Upper, Denture - Lower and Glasses Review of Systems Review of Systems: All systems reviewed & are unremarkable except as noted in HPI & below Physical Exam Constitutional: WD/WN, vitals as above + obese Eyes: PERRL, conjunctivae normal, anicteric sclerae ENMT: external ear and nose normal, oropharynx normal Neck: trachea midline, no thyromegaly Respiratory: normal respiratory effort, lungs clear to auscultation Cardiovascular: Rate/Rhythm: regular rate and regular rhythm Heart Sounds: normal S1 and normal S2; no gallop and no murmur Palpation: normal PMI Vessels: normal carotid upstroke and radial pulses present; no JVD and no carotid bruit Extremities: no edema Gastrointestinal (Abdomen): normal bowel sounds, soft, nontender, no hepatosplenomegaly Musculoskeletal: no cyanosis or clubbing, extremities motor strength 5/5 Skin: no rashes, warm and dry Neurologic: PERRL, EOMI, accommodation nl, no face palsy, no dysarthria Psychiatric: A+Ox3, euthymic affect
[2020-11-02] MEDS ORDERED: HEPARIN (PORCINE) 1000 UNIT/ML 10 ML (CATH LAB USE ONLY) ONE (10:58)
[2020-11-02] MEDS ORDERED: niCARdipine HCL INJ 2.5 MG/ML 10 ML AMP ONE (10:58)
[2020-11-02] MEDS ORDERED: fentaNYL citrate 100 MCG/2 ML VIAL ONE (10:58)
[2020-11-02] MEDS ORDERED: MIDAZOLAM HCL 1 MG/ML 2ML VIAL ONE ×2 (10:58→11:50)
[2020-11-02] MEDS ORDERED: NITROGLYCERIN/D5W 100MCG/ML 20ML SYR ONE (10:59)
--- NOTE | 2020-11-02 11:11 | History & Physical Bridge Note ---
Date of Service November 02, 2020 History & Physical Bridge Note I have examined the patient, reviewed the History & Physical and in the interval since the performance of the History & Physical I have noted the following changes of clinical significance: no changes noted
--- NOTE | 2020-11-02 11:12 | Pre Anesthesia Assessment ---
Date of Service November 02, 2020 Pre Sedation Assessment Vital Signs Temp Pulse Resp BP Pulse Ox 11/02/20 10:05 36.8 C 85 18 178/89 H 94 Pre-Sedation Airway Assessment Smoking Status: Former smoker Hx Sleep Apnea: No Short, Thick Neck: Yes Thyromental Distance: > or= 3.5 Finger Breadths Oral Cavity: + WNL Mallampati Class: II ASA: ASA2 NPO Status Date of Last Intake of Fluids: 11/01/20 Date of Last Intake of Solid Food: 11/01/20 Procedure Planning Contraindications for Sedation: none Current Medications Reviewed: Yes Notes The planned sedation has been discussed with the patient. Informed Consent was obtained. I have identified the patient, determined the appropriateness of sedation and have assessed the patient immediately prior to the procedure. All medicine(s) and interventions are by my order.
[2020-11-02] MEDS ORDERED: CLOPIDOGREL BISULFATE 300 MG TAB ONE (12:03)
--- NOTE | 2020-11-02 12:04 | Cardiac Catheterization ---
Cardiac Cath Procedure Brief Procedure Date November 02, 2020 Pre-Procedure Diagnosis Pre-Procedure Diagnosis: Angina and Positive Stress Test AUC Score AUC Score: 8 Post-Procedure Diagnosis Post-Procedure Diagnosis: Severe CAD Procedure(s) Performed Procedure(s) Performed: Coronary Angiography and Left Heart Cath Dry Goods Clerk Jorge Bates MD Supervisor Cell Operation(s) Thom Vaca Estimated Blood Loss Estimated Blood Loss: <15cc Medication(s) Medication(s): Fentanyl (12.5 mcg IV x 2), Heparin (5000 units IV), Lidocaine 1% (Local infiltration access site), Nicardipine (250 mcg intra-arterial after arterial sheath insertion) and Versed (1 mg IV x 2) Preliminary Findings Right dominant coronary anatomy: Culprit 95% stenosis large left circumflex in its proximal third, vessel with essentially separate origin. Is a large-caliber vessel giving rise to a large first marginal branch and a very large posterior lateral branch which bifurcates and reaches to the apex Left anterior descending: Type III in distribution. It gives rise to a large septal branch 2 small diagonal branches and a large third diagonal branch in its midportion. There is a long area of diffuse disease in its proximal segment of 50%, greatest surrounding the origin of the septal branch Right coronary artery: Dominant distribution. It gives rise to a right ventricular branch in its midportion along modest caliber posterior descending artery and along the AV groove within single posterior ventricular branch. Within the right coronary artery there is moderate diffuse irregularities in its midportion of 30 to 40% LV angiography: Not performed, LVEDP 24 Recommendations Recommendations: PCI without planned CABG Fluids (cc crystalloids) Fluids (cc crystalloids): 50 Anesthesia Start time: 1129, stop time: 1147 Procedural Complication(s) None Disposition PCI same setting
--- NOTE | 2020-11-02 12:09 | Cardiac Catheterization ---
Cardiac Cath Procedure Full Procedure Date November 02, 2020 Pre-Procedure Diagnosis Pre-Procedure Diagnosis: Angina and Positive Stress Test AUC Score AUC Score: 8 Post-Procedure Diagnosis Post-Procedure Diagnosis: Severe CAD Procedure(s) Performed Procedure(s) Performed: Coronary Angiography and Left Heart Cath Gauge Inspector Jorge Bates MD Welt Stitch Cleaner(s) Thom Vaca Estimated Blood Loss Estimated Blood Loss: <15cc Medication(s) Medication(s): Fentanyl (12.5 mcg IV x 2), Heparin (5000 units IV), Lidocaine 1% (Local infiltration access site), Nicardipine (250 mcg intra-arterial after arterial sheath insertion) and Versed (1 mg IV x 2) Summary of Findings Impression: Right dominant coronary anatomy: Culprit 95% stenosis large left circumflex in its proximal third, vessel with essentially separate origin. Is a large-caliber vessel giving rise to a large first marginal branch and a very large posterior lateral branch which bifurcates and reaches to the apex Left anterior descending: Type III in distribution. It gives rise to a large septal branch 2 small diagonal branches and a large third diagonal branch in its midportion. There is a long area of diffuse disease in its proximal segment of 50%, greatest surrounding the origin of the septal branch Right coronary artery: Dominant distribution. It gives rise to a right ventricular branch in its midportion along modest caliber posterior descending artery and along the AV groove within single posterior ventricular branch. W ithin the right coronary artery there is moderate diffuse irregularities in its midportion of 30 to 40% LV angiography: Not performed, LVEDP 24 Hemodynamics Rest Ao:: 170/80/91 Final Ao: 173/78/118 LV: 172/1/24 Recommendations Recommendations: PCI without planned CABG Radiation Exposure (mGy) 622 Contrast (mls) 35 Fluids (cc crystalloids) Fluids (cc crystalloids): 50 Anesthesia Start time: 1129, stop time: 1147 Procedural Complication(s) None Disposition PCI same setting I attest to the content of the Intraoperative Record and any orders documented therein. Any exceptions are noted below. ACC Data: Memory Care Program Director Cardiac Status Clinical evaluation leading to the procedure 80-year-old female symptoms consistent with crescendo angina with atypical symptoms of exertional dyspnea and intermittent chest pressure. She was referred and underwent very limited stress testing less than 2 minutes on Jose before stopping secondary to marked dyspnea with significant inferolateral ST segment changes in the recovery phase. Echo reflective of apical septal and lateral ischemia CAD Presenation: Stable angina Heart Failure: No Cardiogenic Shock within 24 Hours: No Cardiac Arrest within 24 Hours: No Imaging Studies Past 6 Months: Yes Stress Studies Past 6 Months: Yes Standard Exercise Test: No Stress Echocardiogram: Yes - Positive Stress Testing w/SPECT MPI: No Cardiac CTA: No Coronary Anatomy Dominant: Right Left Main (% Stenosis): Ostial (Absent) LAD (% Stenosis): Mid (Long 50) D1 (% Stenosis): Normal D3 (% Stenosis): Normal Circumflex (% Stenosis): Proximal (95) OM1 (% Stenosis): Mid (Mild irregularities) L PL1 (% Stenosis): Normal RCA (% Stenosis): Mid (40) R PDA (% Stenosis): Normal (Thin caliber) R PL1 (% Stenosis): Normal Ramus (% Stenosis): Normal (Trivial) Left Ventricular Angiography EF (%): N/A Diagnostic Physicians Name: Jorge Bates MD Closure Device Recommendations: PCI without planned CABG
[2020-11-02] MEDS ORDERED: ACETAMINOPHEN 325 MG TAB PO PRN (12:25)
[2020-11-02] MEDS ORDERED: SODIUM CHLORIDE 0.9% 500 ML IV PRN (12:25)
[2020-11-02] MEDS ORDERED: SODIUM CHLORIDE 0.9% 1000ML 1,000 ML IV SCH (12:30)
--- NOTE | 2020-11-02 13:30 | Post Anesthesia Assessment ---
Date of Service November 02, 2020 Post Sedation Assessment Vital Signs Temp Pulse Resp BP Pulse Ox 11/02/20 13:06 97.7 F 79 16 156/76 H 93 11/02/20 12:45 80 18 132/89 95 11/02/20 12:30 82 18 157/77 H 95 11/02/20 10:05 98.2 F 85 18 178/89 H 94 Recovery Score Activity: Moves 4 extremities Respiration: Deep Breath/Cough Circulation: +/-20% PreAnes Value Consciousness: Fully Awake Oxygen Saturation: > 92% On Room Air Post Anesthesia Score: 10 Discharge Sedation Level of Care: Fast Track Phase II Post Sedation Plan On clinical assessment, the patient appears to have tolerated the sedation without complications. Patient is recovering as anticipated. Patient will continue to be monitored by nursing and may be discharged when sedation discharge criteria are met per below protocol. Upon Completions of procedure up to 15 minutes continue every 5 minute vital signs and the P.A.R. score; then discharge to a Phase I or Fast Track to Phase II per the following guidelines: * Discharge Patient to appropriate Phase II area if PAR is 8 or greater or return to pre- procedure baseline. The post - procedure orders will be as directed. * If PAR score is less than 8 or not return to pre-procedure baseline then patient will follow Phase I monitoring till PAR is reached for Phase II. The Phase I may be done in procedure room or may call to secure a Phase I area. * If naloxone or flumazenil are used for reversal, hold in Phase I for continued monitoring from when last reversal dose was given for a minimum of 60 minutes or longer pending the nurse and/or physician discretion of patient condition before discharge to Phase II. Please call the Sedation Physician to re-evaluate and complete post-note for discharge to Phase II area. Do NOT discharge from procedure sedation or Phase 1 until post- sedation evaluation note is complete by procedure /sedation MD Sedation Discharge Instructions to be given to the patient at discharge to home.
[2020-11-02] MEDS ORDERED: LORazepam 1 MG TAB PO PRN (14:19)
--- NOTE | 2020-11-02 14:19 | Consultation ---
Date of Consultation November 02, 2020 Assessment & Plan (1) CAD (coronary artery disease): This is a 80-year-old female who has significant past medical history of COPD, prior tobacco abuse, HLD, pre-DM, alcohol abuse who presents for cardiac catheterization in setting of failed stress test. Underwent diagnostic cardiac cath and under went successful PCI for culprit lesion of L circumflex Cardiology Dr. Bates is attending provider admitted to PCU continue close cardiac monitoring, radial band intact continue ASA, plavix, statin, coreg per cardiology Likely d/c tomorrow if uneventful course (2) Pre-diabetes: a1c 5.7 on 03/2020 obtain a1c in a.m. monitor fbs (3) Hyperlipidemia: continue statin (4) Alcohol use: pt admits to 2-3 beers or whiskeys daily, last 2 drinks were monday and mon, but was abstinent two weeks before that place on awss protocol thiamine and folic acid prn lorazepam, monitor for s/sx of withdrawal (5) Chronic obstructive pulmonary disease: hx of tobacco abuse no acute exac not on home inhalers (6) Rash: thought to be attributed to metoprolol and therefore switched to coreg will add benadryl cream prn for itching, appears to be resolving watch for any further ADR with switch to coreg, and addition of plavix and statin (7) DVT prophylaxis: SCD/TEDS, per primary PCP:Sid Dispo:PCU FULL CODE Pt was seen and examined in collaboration with Dr. Cardona, please see addendum Thank you for this consultation. We will follow the patient with you during their hospital stay. You can reach a member of the [facility] Hospitalist Team 13/03 via pager @ [phone]. Supervising Physician Co-Signing Physician Notes Patient is a 80-year-old female who presented for elective cardiac catheterization after failing a stress test. She underwent successful PCI to the circumflex earlier today. Post procedure course was complicated with some bleeding while on the floor however this is stopped. She is otherwise feeling well and has no complaints specifically no chest pain or shortness of breath. She is tolerating p.o. and otherwise doing well. Physical exam as above. Continue to monitor for signs of any alcohol withdrawal. Continue to monitor blood pressure which is starting to trend up and consider treatment with Nitropaste or Ativan. Thank you for allowing us to participate in this patient's care. DO Brendan History of Present Illness Requesting Physician: Dr. Bates Reason for Consultation: Medical management Attending Physician: Jorge Bates MD History of Present Illness This is a 80-year-old female who has significant past medical history of COPD, prior tobacco abuse, HLD, pre-DM, alcohol abuse who presents for cardiac catheterization in setting of failed stress test. Patient was evaluated as outpatient on 10/30 and underwent stress test. Prior to testing she was having left arm numbness, intermittent chest pain, malaise and exertional fatigue. She failed stress test and was started on ASA and metoprolol to prep for upcoming cardiac catheterization. Cardiac catheterization revealed culprit 95% stenosis of large left circumflex in its proximal third vessel with essentially separate origin. She was found to have severe CAD. She underwent successful PCI and was transferred to PCU for post cardiac monitoring. Currently she feels much improved. She denies fever, chills, sweats, illness, dizziness, syncope, chest pain, shortness breath, cough, nausea, vomiting, abdominal pain, change in bowel or urinary habits. She does have a sore rash to bilateral forearms that she attributes to developing after initiation of metoprolol. Arms are very itchy this morning but currently is asymptomatic. She no longer smokes but she does drink approximately 1-2 alcoholic beverages daily. She did have 1 drink on Monday and one drink on Monday. But otherwise did not have any for 2 weeks. Allergies Allergy/AdvReac Type Severity Reaction Status Date / Time No Known Allergies Allergy Verified 02/12/19 08:53 Home Medications Medication Instructions Recorded Confirmed Type multivitamin 1 tab PO DAILY 01/10/19 11/02/20 History aspirin [Aspir-81] 81 mg PO DAILY 11/02/20 11/02/20 History metoprolol succinate 25 mg DAILY 11/02/20 11/02/20 History nitroglycerin 0.4 mg SUBLINGUAL DIRECTED PRN 11/02/20 11/02/20 History trazodone 50 mg PO HS 11/02/20 11/02/20 History Patient History Medical History (Updated 11/02/20 @ 14:15 by Vickie Izaguirre PA-C) Cancer CERVICAL CANCER Chronic obstructive pulmonary disease MILD History of tobacco abuse Pre-diabetes Surgical History History of appendectomy History of cholecystectomy History of dilatation and curettage History of herniorrhaphy History of hysterectomy History of left cataract surgery History of open reduction and internal fixation (ORIF) procedure LEFT ANKLE History of tooth extraction Family History (Updated 11/02/20 @ 14:10 by Vickie Izaguirre PA-C) Mother Diabetes Sister Coronary heart disease Sister Carotid artery stenosis Other Hypertension Social History Smoking Status: Former smoker Cigarettes Per Day: smoked 1.5ppd x 50 years. Quit 2014; Second Hand Exposure: No; Hx Alcohol Use: Yes Alcohol type: hard liquor Alcohol Intake Frequency Comment: 3 mixed drinks daily Hx Substance Use: No Preferred Language: Russian Communication Ability: Effective Volunteer Services Director Required: No Beliefs That Will Affect Care: None Current Living Situation: Spouse Other Information That Helps Us Care for You: No Feels Safe at Home: Yes Safety Concerns: Feels Safe At This Time Assistive Devices: None Review of Systems Review of Systems: All systems reviewed & are unremarkable except as noted in HPI & below Physical Exam Physical Exam: Constitutional: WD/WN, F, vitals as above, NAD, sitting up in bed, pleasant, conversing easily Head: Normocephalic, Atraumatic Eyes: PERRL, conjunctivae normal, anicteric sclerae ENMT: external ear and nose normal, oropharynx normal Neck: trachea midline, no thyromegaly normal visual inspection Respiratory: normal respiratory effort, lungs clear to auscultation, no wheeze, rales, rhonchi. Normal insp/exp effort, no accessory muscle use Cardiovascular: RRR, no murmur, no edema, R radial band intact, NVI distally Vessels: no JVD or carotid bruit Chest: normal inspection of chest Abdomen: normal bowel sounds, soft, nontender, no hepatosplenomegaly Musculoskeletal: no cyanosis or clubbing, extremities motor strength 5/5 Skin: very fine, macular, pink rash to volar aspect of b/l forearms, warm and dry normal turgor Neurologic: PERRL, EOMI, accommodation nl, no face palsy, no dysarthria CN's II-XI intact bilaterally and moves all extremities Psychiatric: A+Ox3, euthymic affect Lymphatic: no cervical or axillary lymphadenopathy : deferred Results & Data ([facility]) Vital Signs (Past 12 Hours) Vital Signs Temp Pulse Resp BP Pulse Ox 11/02/20 13:06 36.5 C 79 16 156/76 H 93 11/02/20 12:45 80 18 132/89 95 11/02/20 12:30 82 18 157/77 H 95 11/02/20 10:05 36.8 C 85 18 178/89 H 94 Diagnostic Findings Cardiac cath: Impression: Right dominant coronary anatomy: Culprit 95% stenosis large left circumflex in its proximal third, vessel with essentially separate origin. Is a large-caliber vessel giving rise to a large first marginal branch and a very large posterior lateral branch which bifurcates and reaches to the apex Left anterior descending: Type III in distribution. It gives rise to a large septal branch 2 small diagonal branches and a large third diagonal branch in its midportion. There is a long area of diffuse disease in its proximal segment of 50%, greatest surrounding the origin of the septal branch Right coronary artery: Dominant distribution. It gives rise to a right liliam tricular branch in its midportion along modest caliber posterior descending artery and along the AV groove within single posterior ventricular branch. Within the right coronary artery there is moderate diffuse irregularities in its midportion of 30 to 40% Medications Administered Discontinued Medications Clopidogrel Bisulfate (Clopidogrel Bisulfate 300 Mg Tab) Confirm Administered Dose 600 mg .ROUTE .STAgendize-MED ONE Stop: 11/02/20 12:04 Last Admin: 11/02/20 12:18 Dose: 600 mg Documented by: [id number] Fentanyl Citrate (Fentanyl Citrate 100 Mcg/2 Ml Vial) Confirm Administered Dose 100 mcg .ROUTE .STK-MED ONE Stop: 11/02/20 10:59 Last Admin: 11/02/20 12:16 Dose: 100 mcg Documented by: [id number] Heparin Sodium (Porcine) (Heparin (Porcine) 1000 Unit/Ml 10 Ml (Silver [employer]er Use Only)) Confirm Administered Dose 10,000 units .ROUTE .STK-MED ONE Stop: 11/02/20 10:59 Last Admin: 11/02/20 12:17 Dose: 9,000 units Documented by: [id number] Heparin Sodium/Sodium Chloride (Heparin In Nss Infusion 1000 Unit/500 Ml (2 U/Ml) Bag) Confirm Administered Dose 3,000 units IV .STK-MED ONE Stop: 11/02/20 10:59 Last Admin: 11/02/20 12:17 Dose: 3,000 units Documented by: [id number] Midazolam HCl (Midazolam Hcl 1 Mg/Ml 2ml Vial) Confirm Administered Dose 2 mg .ROUTE .STK-MED ONE Stop: 11/02/20 10:59 Last Admin: 11/02/20 12:17 Dose: 2 mg Documented by: [id number] Midazolam HCl (Midazolam Hcl 1 Mg/Ml 2ml Vial) Confirm Administered Dose 2 mg .ROUTE .STK-MED ONE Stop: 11/02/20 11:51 Last Admin: 11/02/20 12:18 Dose: 2 mg Documented by: [id number] Nicardipine HCl (Nicardipine Hcl Inj 2.5 Mg/Ml 10 Ml Amp) Confirm Administered Dose 25 mg .ROUTE .STK-MED ONE Stop: 11/02/20 10:59 Last Admin: 11/02/20 12:16 Dose: 0.4 mg Documented by: [id number] Nitroglycerin/Dextrose (Nitroglycerin/D5w 100mcg/Ml 20ml Syr) Confirm Administered Dose 2,000 mcg .ROUTE .STK-MED ONE Stop: 11/02/20 11:00 Last Admin: 11/02/20 12:17 Dose: 150 mcg Documented by: [id number]
[2020-11-02] MEDS: FOLIC ACID 1 MG TAB PO SCH (16:32)
[2020-11-02] MEDS: THIAMINE HCL 100 MG TAB PO SCH (16:33)
--- NOTE | 2020-11-02 18:17 | Cardiac Catheterization ---
[facility] Data: [employer] Cardiac Status Clinical evaluation leading to the procedure CAD Presenation: Positive Stress Test and Unstable angina Anginal Classification: CCS III Heart Failure: No Cardiogenic Shock within 24 Hours: No Cardiac Arrest within 24 Hours: No Imaging Studies Past 6 Months: Yes Stress Studies Past 6 Months: Yes Stress Echocardiogram: Yes - Positive and Risk/Extent of Ischemia (High) Diagnostic Physicians Name: Shady Adamson MD Status: Elective Closure Device Percutaneous Entry Location: Radial Closure Device: Radial Band Recommendations: PCI without planned CABG PCI Indication: + Stress Test Lesion Segment Name: Mid circumflex Culprit Artery: Yes Stenosis Prior to Rx (%): 95 Chronic Total Occlusion: No IVUS: No FFR: No Pre-Procedure ALFREDA Flow: 3 Previously Treated Lesion: No Lesion Complexity: Non-High/Non-C Lesion Length (mm): 12 Thrombus Present: Yes Bifurcation Lesion: No Guidewire Across Lesion: Stenosis Post-Procedure (%): 0 Post-Procedure ALFREDA Flow: 3 Devices(s) Deployed: Yes Yes Intraprocedure Events Significant Disection: No Perforation: No Cardiac Cath Procedure Full Procedure Date November 02, 2020 Pre-Procedure Diagnosis Pre-Procedure Diagnosis: Angina and Positive Stress Test AUC Score AUC Score: 8 Post-Procedure Diagnosis Post-Procedure Diagnosis: Severe CAD and Successful PCI Procedure(s) Performed Procedure(s) Performed: Coronary Angiography and Drug Eluting Stent Draw Machine Operator Shady Adamson MD Galley Boy(s) Thom Vaca Estimated Blood Loss Estimated Blood Loss: <15cc Medication(s) Medication(s): Clopidogrel, Fentanyl (12.5 mcg IV x 2), Heparin (5000 units IV), Nicardipine (250 mcg intra-arterial after arterial sheath insertion), Nitroglycerin and Versed (1 mg IV x 2) Summary of Findings Indication: Angina, abnormal stress test Access: 6 Fr right radial artery Catheters: EBU 3.5 guide Findings: For full details of patient's coronary angiography please see cath report dictated by Dr. Bates. Briefly, patient found to have severe single vessel disease involving her mid circumflex. Decision to proceed with PCI. -- PCI -- Antithrombotic therapy: Heparin, clopidogrel Procedure: Left main cannulated with EBU 3.5 guide Fruit Loader 50 wire passed across lesion into distal vessel Mid second lesion predilated with 3.0 x 12 compliant balloon Dilated lesion stented with 3.5 x 15 mm Silver drug-eluting stent Stent post-dilated with 3.75 noncompliant balloon IC vasodilators administered for spasm Post procedure ALFREDA 3 flow, stent well expanded with minimal residual stenosis and no apparent cardiac complications. Arterial Closure: TR band Summary: 1. Successful PCI of mid circumflex with single drug-eluting stent (3.5 x 15 mm Ponce; postdilated with 3.75 NC). Recommendations: To PCU for continued monitoring Loaded with clopidogrel 600 mg in [employer] Continue dual-antiplatelet therapy for at least 6 months Consult cardiac Rehab Hemodynamics Rest Ao:: 161/69/110 Final Ao: 134/63/120 LV: Recommendations Recommendations: PCI without planned CABG Specimens Specimens: None Radiation Exposure (mGy) 1877 Contrast (mls) 60 Fluids (cc crystalloids) Fluids (cc crystalloids): 90 Drains Drains: None Anesthesia Moderate start time: 1148, stop time: 1212 Procedural Complication(s) None Disposition PCU I attest to the content of the Intraoperative Record and any orders documented therein. Any exceptions are noted below. [facility] Card Cath Procedure Codes Moderate Sedation Procedure 1: Sedation/Anesthesia: 34086 Mod Sedation by the same physician; Ea [id number] Minutes Stenting Procedure 1: Cardiovascular Stent Procedures: 29943 Perc transcatheter placement of intracoronary stent(s), with ang PG Care Time/CCT Total # of Minutes Spent Total Time Spent with Patient: Total time spent is greater than 50% in coordination of care (as documented) at patient's floor/unit and/or counseling patient:
[2020-11-02] MEDS: carvediloL 6.25 MG TAB PO SCH (20:19)
[2020-11-02] MEDS ORDERED: LORATADINE 10 MG TAB PO ONE (20:35)
[2020-11-02] MEDS ORDERED: traZODone HCL 50 MG TAB PO SCH (21:00)
[2020-11-03] MEDS ORDERED: diphenhydrAMINE Capsule 25 MG CAP PO ONE (05:05)
[2020-11-03 08:47] LABS: Hematocrit (blood only) 43.2 % (37-47); Mean Corpuscular Hemoglobin 32.3 pg (25-34); Mean Corpuscular Hgb Conc 34.7 g/dL (32-36); Mean Corpuscular Volume 93.1 fL (80-100); Mean Platelet Volume 9.8 fL (7.4-10.4); Platelet Count 221 K/uL (130-400); RDW Coefficient of Variation 12.7 % (11.5-14.5); RDW Standard Deviation 43.1 fL (36.4-46.3); Red Blood Count 4.64 M/uL (4.2-5.4); White Blood Count 6.57 K/uL (4.8-10.8)
[2020-11-03] MEDS ORDERED: ATORVASTATIN 40 MG TAB PO SCH (09:00)
[2020-11-03] MEDS ORDERED: ASPIRIN 81 MG ECTAB PO SCH (09:00)
[2020-11-03] MEDS ORDERED: CLOPIDOGREL BISULFATE 75 MG TAB PO SCH (09:00)
[2020-11-03 09:06] LABS: BUN Creatinine Ratio 9.1 (10-20); Calcium 9.1 mg/dl (8.5-10.1); Creatinine Clr Calc Pharmacy 41.2 ml/min; Est GFR (African American) 68.2; Est GFR (Non-African American) 58.9; Potassium 3.5 mmol/L (3.5-5.1)
[2020-11-03] MEDS: FOLIC ACID 1 MG TAB PO SCH (09:12)
[2020-11-03] MEDS: carvediloL 6.25 MG TAB PO SCH (09:13)
[2020-11-03] MEDS: THIAMINE HCL 100 MG TAB PO SCH (09:13)
[2020-11-03 09:24] LABS: Estimated Average Glucose 105 mg/dl; Hemoglobin A1C 5.3 % (4.5-5.6)
--- NOTE | 2020-11-03 12:50 | Discharge Summary ---
Date of Service November 03, 2020 Admission HPI Per Admitting Provider Patient is a 80-year-old female referred for stress testing after recent complaints of chest pressure pain, shortness of breath and greater than 1 year history of increasing fatigue and malaise. Her underlying medical issues include borderline hypertension, hyperglycemia and marked hyperlipidemia Patient was referred and underwent stress echocardiography on 10/30/2020. Study was notable for markedly diminished exercise tolerance with marked dyspnea only with 1 minute and 30 seconds on a Jose protocol. EKG response was initially negative but notable for significant ST abnormalities in the recovery phase. Echocardiography was suggestive of possible septal and apical ischemia. Patient referred for further evaluation. Patient denies prior history of myocardial infarction angina or congestive heart failure. She has been experiencing symptoms of shortness of breath and left arm and shoulder discomfort for several months. She is noted some exertional relationship as well as waking from sleep at night on occasion. Notes no fevers chills or unexplained infections. No bleeding difficulties. No melena medication dysuria hematuria. No acute weight loss or gain. 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 She carries a history of significant tobacco use but discontinued in 2014 with greater than 70-[id number] history. Drinks approximately 3 alcoholic beverages per day Admission Exam (Per Admitting) Constitutional WD/WN, vitals as above + obese Eyes PERRL, conjunctivae normal, anicteric sclerae ENMT external ear and nose normal, oropharynx normal Neck trachea midline, no thyromegaly Respiratory normal respiratory effort, lungs clear to auscultation Cardiovascular Rate/Rhythm: regular rate and regular rhythm Heart Sounds: normal S1 and normal S2; no gallop and no murmur Palpation: normal PMI Vessels: normal carotid upstroke and radial pulses present; no JVD and no carotid bruit Extremities: no edema Gastrointestinal (Abdomen) normal bowel sounds, soft, nontender, no hepatosplenomegaly Musculoskeletal no cyanosis or clubbing, extremities motor strength 5/5 Skin no rashes, warm and dry Neurologic PERRL, EOMI, accommodation nl, no face palsy, no dysarthria Psychiatric A+Ox3, euthymic affect Specialty Data Cardiology Cardiac catheterization 11/03/2019 Impression: Right dominant coronary anatomy: Culprit 95% stenosis large left circumflex in its proximal third, vessel with essentially separate origin. Is a large-caliber vessel giving rise to a large first marginal branch and a very large posterior lateral branch which bifurcates and reaches to the apex Left anterior descending: Type III in distribution. It gives rise to a large septal branch 2 small diagonal branches and a large third diagonal branch in its midportion. There is a long area of diffuse disease in its proximal segment of 50%, greatest surrounding the origin of the septal branch Right coronary artery: Dominant distribution. It gives rise to a right ventricular branch in its midportion along modest caliber posterior descending artery and along the AV groove within single posterior ventricular branch. Within the right coronary artery there is moderate diffuse irregularities in its midportion of 30 to 40% LV angiography: Not performed, LVEDP 24 Discharge Data Consultations 11/02/20 13:31 Consult Cardiac Rehabilitation Routine 11/02/20 13:41 Consult Hospitalist Routine Procedures Performed Operation Date: 11/02/20 11:00 Actual Procedures p Cath, Left with Cors and Vent - Jorge Bates MD s Cineradiography w/Routine Exam - Jorge Bates MD Coronary intervention left circumflex with Silver drug-eluting stent-Bubba Adamson MD Hospital Course (1) Crescendo angina: Patient presented with symptoms of exertional dyspnea and chest pressure with markedly positive stress echocardiogram and evaluation of on 10/30/2020. Patient was referred and underwent diagnostic coronary angiography demonstrating high-grade 95% proximal circumflex stenosis reflecting culprit lesion. Moderate atherosclerosis noted in the left anterior descending and right coronary artery. Patient underwent successful drug-eluting stent implantation with Mathews device. Medications were adjusted. Metoprolol succinate was discontinued due to possible rash per patient. Patient begun on carvedilol 6.25 mg twice per day, clopidogrel 75 mg/day to be continued uninterrupted preferably for 1 year, atorvastatin 40 mg/day and aspirin 81 mg per day Patient will be discharged with planned cardiac rehab and ongoing cardiac follow-up (2) Abnormal cardiovascular stress test:
== END 2020-11-03 14:00 | disposition home or self-care (01) ==
LOC: CC 08:52 → 2S 08:52